=== PATIENT | male | born 1965 | race Caucasian/White ===

== ENCOUNTER 2016-06-11 12:31 | Emergency (ER) | payer OTHER ==
--- NOTE | 2016-06-11 12:50 | ER Document Report ---
ED Medical Screen (RME) - General Chief Complaint: Abdominal Pain Stated Complaint: STOMACH PAIN Time seen by provider: 12:47 Mode of Arrival: Ambulatory Information source: Patient Notes: 51-year-old male presents to ED for abdominal pain since Friday. States when he first came in the pain that was a 4 out of 5, he then went to the bathroom, now his pain is a 1 out of 5. States he took magnesium citrate this morning at 4:30 and that's why he had a bowel movement. States the last time he did magnesium citrate and had a bowel movement was Friday night. Each time he takes a magnesium citrate and he has a bowel movement his pain gets better. I have greeted and performed a rapid initial assessment of this patient. A comprehensive ED assessment and evaluation of the patient, analysis of test results and completion of medical decision making process will be conducted by an additional ED providers. TRAVEL OUTSIDE OF THE [place] IN LAST 30 DAYS: No - Related Data Allergies/Adverse Reactions: No Known Allergies Allergy (Verified 07/26/12 23:16) Past Medical History Pulmonary Medical History: Reports: Hx Pneumonia Denies: Hx Asthma, Hx Bronchitis, Hx COPD Endocrine Medical History: Reports: Hx Diabetes Mellitus Type 2 Past Surgical History: Reports: Hx Appendectomy - Immunizations Immunizations up to date: Yes Hx Diphtheria, Pertussis, Tetanus Vaccination: Yes Physical Exam - Vital signs Vitals: Temp Pulse Resp BP Pulse Ox 97.5 F 101 H 20 168/89 H 90 L 06/11/16 12:40 06/11/16 12:40 06/11/16 12:40 06/11/16 12:40 06/11/16 12:40 Course - Vital Signs Vital signs: Temp Pulse Resp BP Pulse Ox 97.5 F 101 H 20 168/89 H 90 L 06/11/16 12:40 06/11/16 12:40 06/11/16 12:40 06/11/16 12:40 06/11/16 12:40
[2016-06-11 13:26] LABS: ABSOLUTE BASOPHILS # (AUTO) 0.1 10^3/uL (0.0-0.2); ABSOLUTE EOSINOPHILS # (AUTO) 0.1 10^3/uL (0.0-0.6); ABSOLUTE LYMPHOCYTES (AUTO) 2.7 10^3/uL (0.5-4.7); ABSOLUTE MONOCYTES (AUTO) 1.1 10^3/uL (0.1-1.4); ABSOLUTE NEUT (AUTO) 11.7 10^3/uL (1.7-8.2); BASOPHILS % (AUTO) 0.7 % (0-2); EOSINOPHILS % (AUTO) 0.4 % (0-6); HEMATOCRIT 50.7 % (37.9-51.0); HEMOGLOBIN 16.1 g/dL (13.5-17.0); HGB HCT DIFFERENCE -2.4; LYMPHOCYTES % (AUTO) 17.5 % (13-45); MEAN CORPUSCULAR HEMOGLOBIN 27.1 pg (27.0-33.4); MEAN CORPUSCULAR HGB CONC 31.8 g/dL (32.0-36.0); MEAN CORPUSCULAR VOLUME 85 fl (80-97); MONOCYTES % (AUTO) 6.9 % (3-13); RED BLOOD COUNT 5.95 10^6/uL (4.35-5.55); RED CELL DISTRIBUTION WIDTH 15.2 % (11.5-14.0); SEGMENTED NEUTROPHILS % (AUTO) 74.5 % (42-78); WHITE BLOOD COUNT 15.7 10^3/uL (4.0-10.5)
[2016-06-11 13:46] LABS: ALANINE AMINOTRANSFERASE 33 U/L (21-72); ALBUMIN 4.3 g/dL (3.5-5.0); ALKALINE PHOSPHATASE 96 U/L (38-126); ANION GAP 12 (5-19); ASPARTATE AMINO TRANSFERASE 19 U/L (17-59); BILIRUBIN,TOTAL 0.7 mg/dL (0.2-1.3); BLOOD UREA NITROGEN 15 mg/dL (7-20); CALCIUM 9.2 mg/dL (8.4-10.2); CARBON DIOXIDE 28 mmol/L (22-30); CHLORIDE 100 mmol/L (98-107); CREATININE RESULT 0.91 mg/dL (0.52-1.25); GLUCOSE 117 mg/dL (75-110); LIPASE 82.3 U/L (23-300); POTASSIUM 4.5 mmol/L (3.6-5.0); SODIUM 140.1 mmol/L (137-145)
[2016-06-11 14:42] LABS: APPEARANCE,URINE SLIGHTLY-CLOUDY; BILIRUBIN,URINE NEGATIVE (NEGATIVE); GLUCOSE, URINE NEGATIVE (NEGATIVE); KETONES,URINE NEGATIVE (NEGATIVE); LEUKOCYTE ESTERASE,URINE NEGATIVE (NEGATIVE); NITRITE,URINE NEGATIVE (NEGATIVE); PROTEIN,URINE 100 mg/dL (NEGATIVE); URINE SPECIFIC GRAVITY 1.021; UROBILINOGEN,URINE NEGATIVE mg/dL (<2.0)
--- NOTE | 2016-06-11 14:53 | ER Document Report ---
ED GI/ - General Chief Complaint: Abdominal Pain Stated Complaint: STOMACH PAIN Mode of Arrival: Ambulatory Notes: Patient is a 51-year-old male who presents emergency Department complaining of abdominal pain. Patient states that he has had this abdominal pain since Friday. Patient states that his pain is a stabbing pain over his belly button that improves after he has a bowel movement. Patient states that he normally goes daily but has had difficulty over the past 4 days. He taking mag citrate in the morning snorter just admitted a bowel movement. Patient states that his pain resolves with a bowel movement. Patient states that every bowel movement he has had since Friday has been any and is not performed. Otherwise he denies any nausea, vomiting and is been tolerating by mouth. Denies any urinary symptoms or flank. Past medical history significant for hyperlipidemia, insulin-dependent diabetes , hypertension Past surgical history significant for appendectomy when he was 17, tonsils and adenoids, with some teeth extraction Social history significant for [id number]. Otherwise denies any alcohol or drug use Denies any allergies P[facility] is tessy [facility] TRAVEL OUTSIDE OF THE [place] IN LAST 30 DAYS: No - Related Data Allergies/Adverse Reactions: No Known Allergies Allergy (Verified 06/11/16 12:50) Past Medical History - General Information source: Patient - Social History Smoking Status: Current Every Day Smoker Chew tobacco use (# tins/day): No Frequency of alcohol use: None Drug Abuse: None Family History: Reviewed & Not Pertinent Patient has suicidal ideation: No Patient has homicidal ideation: No Pulmonary Medical History: Reports: Hx Pneumonia Denies: Hx Asthma, Hx Bronchitis, Hx COPD Endocrine Medical History: Reports: Hx Diabetes Mellitus Type 2 Renal/ Medical History: Denies: Hx Peritoneal Dialysis Past Surgical History: Reports: Hx Appendectomy - Immunizations Immunizations up to date: Yes Hx Diphtheria, Pertussis, Tetanus Vaccination: Yes Review of Systems - Review of Systems Constitutional: No symptoms reported EENT: No symptoms reported Cardiovascular: No symptoms reported Respiratory: No symptoms reported Gastrointestinal: See HPI Genitourinary: No symptoms reported Male Genitourinary: No symptoms reported Musculoskeletal: No symptoms reported Skin: No symptoms reported Hematologic/Lymphatic: No symptoms reported Neurological/Psychological: No symptoms reported Physical Exam - Vital signs Vitals: Temp Pulse Resp BP Pulse Ox 97.5 F 101 H 20 168/89 H 90 L 06/11/16 12:40 06/11/16 12:40 06/11/16 12:40 06/11/16 12:40 06/11/16 12:40 - Notes Notes: PHYSICAL EXAM GENERAL: Alert, interacts well. HEAD: Normocephalic, atraumatic. EYES: Pupils equal, round, and reactive to light. Extraocular movements intact. ENT: Oral mucosa moist, tongue midline. NECK: Full range of motion. Supple. Trachea midline. LUNGS: Clear to auscultation bilaterally, no wheezes, rales, or rhonchi. No respiratory distress. HEART: Regular rate and rhythm. No murmurs, gallops, or rubs. ABDOMEN: Soft, obese, nondistended, nontender. Not tympanic dull to percussion. Negative Jaime's. No guarding, rebound, or rigidity.. Bowel sounds present in all 4 quadrants. EXTREMITIES: Moves all 4 extremities spontaneously. No edema, radial and dorsalis pedis pulses 2/4 bilaterally. No cyanosis. NEUROLOGICAL: Alert and oriented x3. Normal speech. PSYCH: Normal affect, normal mood. SKIN: Warm, dry, normal turgor. No rashes or lesions noted. Course - Re-evaluation Re-evalutation: 06/11/16 16:04 Patient is a 51-year-old male presents emergency department after referral from the [facility] for acute abdominal pain. Patient states he is sharp stabbing pain over his umbilicus that is relieved with bowel movements. Patient is last bowel movement was this morning and he states that his abdominal pain is much improved. Patient is hemodynamically stable, no acute distress and afebrile. No evidence of tachycardia. Labs do reveal mild leukocytosis at 15 but otherwise no correlating symptoms concerning for infection. Patient does not have any significant GI history such as diverticulosis, Crohn's, ulcerative colitis. He has not had any blood per rectum. Otherwise he is hemodynamically stable. No nausea or vomiting. X-ray does not reveal any free air or fluid levels concerning for obstruction or free air. Patient will be discharged home with constipation management [facility] Per [facility] protocol and guidelines, this case was discussed with supervising physician Dr. Rose Gomez prior to discharge - Vital Signs Vital signs: Temp Pulse Resp BP Pulse Ox 97.5 F 101 H 20 168/89 H 90 L 06/11/16 12:40 06/11/16 12:40 06/11/16 12:40 06/11/16 12:40 06/11/16 12:40 - Laboratory Result Diagrams: 06/11/16 13:05 06/11/16 13:05 Laboratory results interpreted by me: 06/11/16 06/11/16 06/11/16 13:05 13:05 13:05 WBC 15.7 H RBC 5.95 H MCHC 31.8 L RDW 15.2 H Absolute Neutrophils 11.7 H Glucose 117 H Urine Protein 100 H Discharge - Discharge Clinical Impression: Constipation Qualifiers: Constipation type: unspecified constipation type Qualified Code(s): K59.00 - Constipation, unspecified Condition: Good Disposition: HOME, SELF-CARE Additional Instructions: ABDOMINAL PAIN: There are many causes of abdominal pain. Pain can mean a serious problem requiring surgery (such as appendicitis). It can also be an innocent problem that goes away on its own (such as a viral infection). Often, time must pass to determine the cause of pain. The physician does not feel that hospitalization is necessary, at present. Things may change within the next 24 hours. Call the doctor or come back for re- examination if any problems occur, such as: (1) Pain that becomes more severe, steady, or becomes concentrated in one specific area. Also, pain that is more severe with movement or coughing. (2) Vomiting that persists or becomes more frequent. (3) Blood in the vomitus, urine, or bowel movements. Blood in the stool may have a tarry or black appearance. (4) Shaking chills or fever greater than 100 degrees F. (5) The abdomen becomes more distended or swollen. (6) Bowel movements cease. (7) Failure to improve as expected. NORMAL EXAM AND WORKUP: At this time, your examination and workup show no significant abnormality. No significant abnormal physical findings are noted. All laboratory, EKG, and imaging (x-ray, CT scans, ultrasound) studies that were ordered show no significant abnormality. Although your examination and all studies that were ordered showed no significant abnormal finding, there are no examinations and no studies that are 100% accurate. There is always the possibility that some abnormality could exist and not be detected with physical examination or within the limits and capabilities of laboratory and other studies. You should return or follow up as you were instructed on your visit today for further evaluation if your symptoms do not resolve. CONSTIPATION: Constipation is a common problem. It is especially likely as you get older. Constipation is a common cause of abdominal pain, but sometimes causes no symptoms at all. Causes of constipation include certain medications, dehydration, diets, inactivity, and low-fiber intake. Rarely, it can be a symptom of underlying disease. The physician has evaluated you for this. Avoid constipation by eating a diet high in fiber, fruits, and vegetables. Drink plenty of liquids. Get regular exercise. If possible, avoid constipating medicines like narcotic pain medication. Some vitamin tablets can cause constipation. Stool softeners may be needed for difficult cases. An excellent stool softener is Konsyl which is available at [employer], [employer]. Just add a teaspoon to a glass of pineapple or orange juice daily or twice a day if needed. Laxatives are useful for occasional constipation. You should use them only when necessary. Too-frequent use can make your bowels dependent on them. Some over the counter laxatives available without prescription are: Milk of Magnesia, 1-2 tablespoons twice a day Dulcolax, 5 mg pill or 10 mg suppository. Citrate of Magnesia, 4-5 ounces a day for a day or two For acute constipation, Fleet's Enemas and Dulcolax suppositories are helpful. Chronic, oil heaterman use of laxatives or enemas is not a good idea. Your bowel may become dependant on them. You do not need to have a bowel movement every day. Many people do fine with a bowel movement every three or four days. You should call your doctor or return for re-evaluation if you pass blood in the stool, or if you develop fever or increasing abdominal pain. BULK LAXATIVES: Bulk laxatives make the stool softer and bulkier. They're useful for preventing constipation. You can choose between psyllium, methylcellulose, and polycarbophil. They are available without a prescription. Psyllium brand names include Konsyl, Metamucil, Perdiem, Effer-Syllium and Hydrocil. It's available as powder, flavored drink powder, or chewable. The usual dose of psyllium powder is one heaping teaspoon in water each morning, increasing to twice a day if needed. Yelm juice can disguise the slightly grainy texture. Methylcellulose is marketed as Citrucel and other brands. The average dose is two grams in a cup of water one to three times a day. Polycarbophil is marketed as Fiber-Con. Take two tablets with a cup of water one to three times a day. LAXATIVE: A laxative agent has been prescribed for your condition. This should result in passage of stool within 12 hours. Some mild intestinal cramping is common as the hard stool begins to move. You may have loose or runny stools for a short time. Contact your doctor if there is severe cramping, vomiting, or passage of blood. Return for further care if this medicine fails to improve your condition. STOOL SOFTENER: -Available over the counter. Docusate/Colace FOLLOW-UP CARE: If you have been referred to a physician for follow-up care, call the physician s office for an appointment as you were instructed or within the next two days. If you experience worsening or a significant change in your symptoms, notify the physician immediately or return to the Emergency Department at any time for re-evaluation. Forms: Elevated Blood Pressure, Smoking Cessation Education Referrals: PAYAL GEORGE PA [Primary Care Provider] - Follow up in 1 week
[2016-06-11 16:42] VITALS: BP 130/75
== END 2016-06-11 16:40 | disposition home or self-care (01) ==
LOC: ER 12:31
DX: K59.00 Constipation, unspecified (principal); R10.33 Periumbilical pain; D72.829 Elevated white blood cell count, unspecified; I10 Essential (primary) hypertension; E11.9 Type 2 diabetes mellitus without complications; F17.200 Nicotine dependence, unspecified, uncomplicated; Z79.4 Long term (current) use of insulin; Z90.49 Acquired absence of other specified parts of digestive tract
CPT/HCPCS: 36415; 74022; 80053; 81001; 83690; 85025; 99284

== ENCOUNTER 2017-01-10 13:22 | Inpatient (IN) | payer OTHER ==
[2017-01-10] MEDS ORDERED: ALBUTEROL SULFATE 0.083% NEB 2.5 MG/3 ML AMPUL NEB ONE (13:48)
[2017-01-10] MEDS ORDERED: METHYLPREDNISOLONE INJ 125 MG/2 ML SDV IV ONE (13:48)
--- NOTE | 2017-01-10 14:05 | ER Document Report ---
ED Medical Screen (RME) - General TRAVEL OUTSIDE OF THE [place] IN LAST 30 DAYS: No <DAVID MCGEE - Last Filed: 01/10/17 13:59> <CHANELLE VALIENTE - Last Filed: 01/10/17 16:40> - General Chief Complaint: Breathing Difficulty Stated Complaint: DIFFICULTY BREATHING Time Seen by Provider: 01/10/17 13:47 Notes: Patient is a 51 year old male with a history of COPD presenting to the emergency department for difficulty breathing x1 week. Patient has a productive cough with green sputum. Patient states he took DayQuil without relief. Patient saw [facility] on Friday and had a pulse ox of 82%. Patient was given a breathing treatment, a shot, and monitored for a while until he had a pulse ox of 91%. Patient was given a prescription for albuterol, mucinex, robitussin, and steroids which he started on . Patient denies any fevers. (DAVID MCGEE) - Related Data Allergies/Adverse Reactions: No Known Allergies Allergy (Verified 06/11/16 12:50) Past Medical History - Social History Chew tobacco use (# tins/day): No Frequency of alcohol use: None Drug Abuse: None Pulmonary Medical History: Reports: Hx COPD, Hx Pneumonia Denies: Hx Asthma, Hx Bronchitis Endocrine Medical History: Reports: Hx Diabetes Mellitus Type 2 Renal/ Medical History: Denies: Hx Peritoneal Dialysis Past Surgical History: Reports: Hx Appendectomy - Immunizations Immunizations up to date: Yes Hx Diphtheria, Pertussis, Tetanus Vaccination: Yes <DAVID MCGEE - Last Filed: 01/10/17 13:59> Physical Exam <DAVID MCGEE - Last Filed: 01/10/17 13:59> <CHANELLE VALIENTE - Last Filed: 01/10/17 16:40> - Vital signs Vitals: Temp Pulse Resp BP Pulse Ox 98.4 F 98 20 159/91 H 82 L 01/10/17 13:27 01/10/17 13:27 01/10/17 13:27 01/10/17 13:27 01/10/17 13:27 - Notes Notes: GENERAL: Alert, interacts well. Mild distress. LUNGS: Decreased air movement, expiratory wheezes, trace crackles. HEART: Regular rate and rhythm. No murmurs, gallops, or rubs. NEUROLOGICAL: Alert and oriented x3. Normal speech. (DAVID MCGEE) Course - Laboratory Result Diagrams: 01/10/17 14:10 01/10/17 14:10 <CHANELLE VALIENTE - Last Filed: 01/10/17 16:40> - Vital Signs Vital signs: Temp Pulse Resp BP Pulse Ox 98.4 F 98 17 146/90 H 96 01/10/17 13:27 01/10/17 13:27 01/10/17 15:02 01/10/17 15:02 01/10/17 15:02 - Laboratory Laboratory results interpreted by me: 01/10/17 01/10/17 01/10/17 14:10 14:10 14:10 WBC 11.3 H RDW 15.9 H Absolute Neutrophils 8.6 H VBG pCO2 72.7 H* VBG HCO3 35.5 H Chloride 97 L Carbon Dioxide 38 H Glucose 216 H Direct Bilirubin 0.5 H Doctor's Discharge <DAVID MCGEE - Last Filed: 01/10/17 13:59> <CHANELLE VALIENTE - Last Filed: 01/10/17 16:40> - Discharge Clinical Impression: Encounter for smoking cessation counseling, Severe hypoxemia, severe hypercapnea, Respiratory failure, Pneumonia Condition: Fair Disposition: ADMITTED INPATIENT Scribe Documentation - Scribe Written by Scribramirez:: Kimber Juarez 01/10/17 14:04 acting as scribe for :: Ngozi <DAVID MCGEE - Last Filed: 01/10/17 13:59>
[2017-01-10 14:28] LABS: ABSOLUTE BASOPHILS # (AUTO) 0.1 10^3/uL (0.0-0.2); ABSOLUTE LYMPHOCYTES (AUTO) 1.8 10^3/uL (0.5-4.7); ABSOLUTE MONOCYTES (AUTO) 0.8 10^3/uL (0.1-1.4); ABSOLUTE NEUT (AUTO) 8.6 10^3/uL (1.7-8.2); BASOPHILS % (AUTO) 0.9 % (0-2); EOSINOPHILS % (AUTO) 0.3 % (0-6); HEMATOCRIT 46.7 % (37.9-51.0); HEMOGLOBIN 15.2 g/dL (13.5-17.0); HGB HCT DIFFERENCE -1.1; LYMPHOCYTES % (AUTO) 16.2 % (13-45); MEAN CORPUSCULAR HEMOGLOBIN 27.7 pg (27.0-33.4); MEAN CORPUSCULAR HGB CONC 32.5 g/dL (32.0-36.0); MEAN CORPUSCULAR VOLUME 85 fl (80-97); MONOCYTES % (AUTO) 6.8 % (3-13); RED BLOOD COUNT 5.48 10^6/uL (4.35-5.55); RED CELL DISTRIBUTION WIDTH 15.9 % (11.5-14.0); SEGMENTED NEUTROPHILS % (AUTO) 75.8 % (42-78); VENOUS BLOOD BASE EXCESS 6.1 mmol/L; VENOUS BLOOD HCO3 35.5 mmol/L (20-32); VENOUS BLOOD PH 7.31 (7.30-7.42); WHITE BLOOD COUNT 11.3 10^3/uL (4.0-10.5)
[2017-01-10] MEDS ORDERED: IPRATROPIUM/ALBUTEROL 0.5-2.5 MG/3 ML AMPUL NEB ONE ×2 (14:32→14:33)
--- NOTE | 2017-01-10 14:32 | ER Document Report ---
ED General - General Chief Complaint: Breathing Difficulty Stated Complaint: DIFFICULTY BREATHING Time Seen by Provider: 01/10/17 13:47 Mode of Arrival: Ambulatory Information source: Patient, POA - Power of Tenant Selector Notes: 51 yr old male hx of copd presents with complaints of sob productive cough. [facility], sent home with albuterol and antibiotics, he has taken 3 days worth of antibiotics, noted to be very sob. Pt states he was dc [facility] at 92% TRAVEL OUTSIDE OF THE [place] IN LAST 30 DAYS: No - HPI Onset: Last week Onset/Duration: Persistent Quality of pain: No pain Severity: Severe Pain Level: Denies Associated symptoms: Productive cough, Hurts to breath, Shortness of breath Exacerbated by: Walking Relieved by: Denies Similar symptoms previously: Yes Recently seen / treated by doctor: Yes - Related Data Allergies/Adverse Reactions: No Known Allergies Allergy (Verified 06/11/16 12:50) Past Medical History - Social History Smoking Status: Current Every Day Smoker Cigarette use (# per day): Yes Chew tobacco use (# tins/day): No Smoking Education Provided: Yes - Patient counselled regarding cessation for 4 minutes Frequency of alcohol use: None Drug Abuse: None Family History: Reviewed & Not Pertinent Pulmonary Medical History: Reports: Hx COPD, Hx Pneumonia Denies: Hx Asthma, Hx Bronchitis Endocrine Medical History: Reports: Hx Diabetes Mellitus Type 2 Renal/ Medical History: Denies: Hx Peritoneal Dialysis Past Surgical History: Reports: Hx Appendectomy - Immunizations Immunizations up to date: Yes Hx Diphtheria, Pertussis, Tetanus Vaccination: Yes Review of Systems - Review of Systems Notes: REVIEW OF SYSTEMS: CONSTITUTIONAL : Denies fever, chills, or sweats. Denies recent illness. EENT: Denies eye, ear, throat, or mouth pain or symptoms. Denies nasal or sinus congestion or discharge. Denies throat, tongue, or mouth swelling or difficulty swallowing. CARDIOVASCULAR: Denies chest pain. Denies palpitations or racing or irregular heart beat. Denies ankle edema. RESPIRATORY: admits to sob, difficulty breathing GASTROINTESTINAL: Denies abdominal pain or distention. Denies nausea, vomiting , or diarrhea. Denies blood in vomitus, stools, or per rectum. Denies black, tarry stools. Denies constipation. GENITOURINARY: Denies difficulty urinating, painful urination, burning, frequency, blood in urine, or discharge. MUSCULOSKELETAL: Denies back or neck pain or stiffness. Denies joint pain or swelling. SKIN: Denies rash, lesions or sores. HEMATOLOGIC : Denies easy bruising or bleeding. LYMPHATIC: Denies swollen, enlarged glands. NEUROLOGICAL: Denies confusion or altered mental status. Denies passing out or loss of consciousness. Denies dizziness or lightheadedness. Denies headache. Denies weakness or paralysis or loss of use of either side. Denies problems with gait or speech. Denies sensory loss, numbness, or tingling. Denies seizures. PSYCHIATRIC: Denies anxiety or stress. Denies depression, suicidal ideation, or homicidal ideation. ALL OTHER SYSTEMS REVIEWED AND NEGATIVE. Dictation was performed using [employer] voice recognition software PHYSICAL EXAMINATION: GENERAL: morbidly obese , moderate resp distress HEAD: Atraumatic, normocephalic. EYES: Pupils equal round and reactive to light, extraocular movements intact, sclera anicteric, conjunctiva are normal. ENT: Nares patent, oropharynx clear without exudates. Moist mucous membranes. NECK: Normal range of motion, supple without lymphadenopathy LUNGS: coarse wheezing all throuhgout HEART: Regular rate and rhythm without murmurs ABDOMEN: Soft, nontender, nondistended abdomen. No guarding, no rebound. No masses appreciated. Musculoskeletal: Normal range of motion, no pitting or edema. No cyanosis. NEUROLOGICAL: Cranial nerves grossly intact. Normal speech, normal gait. Normal sensory, motor exams PSYCH: Normal mood, normal affect. SKIN: healing lesions on arms Physical Exam - Vital signs Vitals: Temp Pulse Resp BP Pulse Ox 98.4 F 98 20 159/91 H 82 L 01/10/17 13:27 01/10/17 13:27 01/10/17 13:27 01/10/17 13:27 01/10/17 13:27 Course - Re-evaluation Re-evalutation: 01/10/17 14:35 Patient noted to be satting 78% on room air, he was immediately placed on nasal cannula respiratory has been contacted for BiPAP dyspnea workup pending. Patient will be admitted 01/10/17 14:39 Venous blood gas notes elevated CO2, 01/10/17 14:58 X-rays consistent with early pneumonia, patient will be started on Levaquin. Otherwise he is actually quite stable. He will be admitted to the [facility] - Vital Signs Vital signs: Temp Pulse Resp BP Pulse Ox 98.4 F 98 20 159/91 H 82 L 01/10/17 13:27 01/10/17 13:27 01/10/17 13:27 01/10/17 13:27 01/10/17 13:27 - Laboratory Result Diagrams: 01/10/17 14:10 01/10/17 14:10 Laboratory results interpreted by me: 01/10/17 01/10/17 01/10/17 14:10 14:10 14:10 WBC 11.3 H RDW 15.9 H Absolute Neutrophils 8.6 H VBG pCO2 72.7 H* VBG HCO3 35.5 H Chloride 97 L Carbon Dioxide 38 H Glucose 216 H Direct Bilirubin 0.5 H - Diagnostic Test Radiology reviewed: Image reviewed, Reports reviewed - EKG Interpretation by Me EKG shows normal: Sinus rhythm, Mena, Intervals, QRS Complexes Critical Care Note - Critical Care Note Total time excluding time spent on procedures (mins): 34 Comments: 34 minutes of critical care time spent in direct contact evaluating and reevaluating the patient, treating symptoms, reviewing labs and studies and speaking with family and consultants excluding any procedures Discharge - Discharge Clinical Impression: Encounter for smoking cessation counseling, Severe hypoxemia, severe hypercapnea Respiratory failure Qualifiers: Chronicity: acute Respiratory failure complication: hypoxia and hypercapnia Qualified Code(s): J96.01 - Acute respiratory failure with hypoxia; J96.02 - Acute respiratory failure with hypercapnia Pneumonia Qualifiers: Pneumonia type: due to unspecified organism Laterality: right Lung location: lower lobe of lung Qualified Code(s): J18.1 - Lobar pneumonia, unspecified organism Condition: Fair Disposition: ADMITTED INPATIENT Admitting Provider: Hospitalist Unit Admitted: [facility]
[2017-01-10 14:34] LABS: VENOUS BLOOD PCO2 72.7 mmHg (35-63)
[2017-01-10 14:45] LABS: ALANINE AMINOTRANSFERASE 43 U/L (21-72); ALBUMIN 3.8 g/dL (3.5-5.0); ALKALINE PHOSPHATASE 89 U/L (38-126); ANION GAP 7 (5-19); ASPARTATE AMINO TRANSFERASE 26 U/L (17-59); BILIRUBIN,DIRECT 0.5 mg/dL (0.0-0.4); BILIRUBIN,TOTAL 0.5 mg/dL (0.2-1.3); BLOOD UREA NITROGEN 19 mg/dL (7-20); CALCIUM 8.9 mg/dL (8.4-10.2); CARBON DIOXIDE 38 mmol/L (22-30); CHLORIDE 97 mmol/L (98-107); CREATINE KINASE 126 U/L (55-170); CREATININE RESULT 0.91 mg/dL (0.52-1.25); GLUCOSE 216 mg/dL (75-110); POTASSIUM 4.3 mmol/L (3.6-5.0); TOTAL PROTEIN 6.7 g/dL (6.3-8.2)
--- NOTE | 2017-01-10 14:48 | RADIOLOGY REPORT (SQ) ---
EXAM DESCRIPTION: CHEST PA/LAT COMPLETED DATE/TIME: 01/10/2017 2:34 pm REASON FOR STUDY: SOB, cough COMPARISON: 07/27/2012 EXAM PARAMETERS: NUMBER OF VIEWS: two views TECHNIQUE: Digital Frontal and Lateral radiographic views of the chest acquired. RADIATION DOSE: NA LIMITATIONS: Overlying breast tissue. FINDINGS: LUNGS AND PLEURA: Subsegmental airspace disease right lower lobe. MEDIASTINUM AND HILAR STRUCTURES: No masses or contour abnormalities. HEART AND VASCULAR STRUCTURES: Stable cardiomegaly. BONES: No acute findings. HARDWARE: None in the chest. OTHER: No other significant finding. IMPRESSION: Atelectasis or early pneumonia right lower lobe. TECHNICAL DOCUMENTATION: JOB ID: [id number] [employer]- All Rights Reserved
[2017-01-10] MEDS ORDERED: LEVOFLOXACIN 750 MG/D5W RTU 750 MG/150 ML RTUPB IV ONE (14:51)
[2017-01-10 14:56] LABS: CREATINE KINASE MB 1.64 ng/mL (<4.55)
[2017-01-10 14:59] LABS: TROPONIN I < 0.012 ng/mL
[2017-01-10] MEDS ORDERED: ACETAMINOPHEN 325 MG TABLET PO PRN (15:10)
[2017-01-10] MEDS ORDERED: NORMAL SALINE 1000 ML 1,000 ML IV PRN (15:10)
[2017-01-10] MEDS ORDERED: ENOXAPARIN SODIUM INJ 40 MG/0.4 ML DISP.SYRIN SUBCUT ONE ×2 (17:00→18:30)
[2017-01-10] MEDS ORDERED: DEXTROSE 50%-WATER SYRINGE 25 GM/50 ML DOSE IV PRN (17:58)
[2017-01-10] MEDS ORDERED: DEXTROSE 50%-WATER SYRINGE 12.5 GM/25 ML DOSE IV PRN (17:58)
[2017-01-10] MEDS ORDERED: DEXTROSE 40% GEL 15 GM TUBE PO PRN (17:58)
[2017-01-10] MEDS ORDERED: GLUCAGON,HUMAN RECOMB 1 MG INJ IM PRN (17:58)
[2017-01-10] MEDS ORDERED: DEXTROSE 40% GEL 15 GM TUBE X 2 PO PRN (17:58)
[2017-01-10] MEDS: INSULIN LISPRO 100 UNIT/ML 3 ML VIAL SUBCUT PRN (19:06)
[2017-01-10] MEDS: BUDESONIDE NEB 0.25 MG/2 ML AMPUL NEB SCH (20:51)
[2017-01-10] MEDS: GUAIFENESIN 600 MG TABLET.SA PO SCH (22:03)
[2017-01-10] MEDS: FAMOTIDINE 20 MG TABLET PO SCH (22:03)
--- NOTE | 2017-01-10 23:56 | EKG REPORT ---
SEVERITY:- BORDERLINE ECG - SINUS RHYTHM : Confirmed by: Robert Brink 10-Jan-2017 23:55:20
[2017-01-11] MEDS: INSULIN GLARGINE,HUM.REC.ANLOG 1,000 UNIT/10 ML UNIT SUBCUT SCH ×2 (00:47→21:39)
[2017-01-11] MEDS: INSULIN LISPRO 100 UNIT/ML 3 ML VIAL SUBCUT PRN ×3 (00:47→16:48)
[2017-01-11 05:53] LABS: ABSOLUTE LYMPHOCYTES (AUTO) 1.2 10^3/uL (0.5-4.7); ABSOLUTE MONOCYTES (AUTO) 0.6 10^3/uL (0.1-1.4); ABSOLUTE NEUT (AUTO) 7.5 10^3/uL (1.7-8.2); BASOPHILS % (AUTO) 0.5 % (0-2); HEMATOCRIT 44.2 % (37.9-51.0); HEMOGLOBIN 14.3 g/dL (13.5-17.0); HGB HCT DIFFERENCE -1.3; LYMPHOCYTES % (AUTO) 13.3 % (13-45); MEAN CORPUSCULAR HEMOGLOBIN 28.1 pg (27.0-33.4); MEAN CORPUSCULAR HGB CONC 32.4 g/dL (32.0-36.0); MEAN CORPUSCULAR VOLUME 87 fl (80-97); MONOCYTES % (AUTO) 6.2 % (3-13); RED CELL DISTRIBUTION WIDTH 15.6 % (11.5-14.0); WHITE BLOOD COUNT 9.3 10^3/uL (4.0-10.5)
[2017-01-11 06:07] LABS: ANION GAP 8 (5-19); BLOOD UREA NITROGEN 18 mg/dL (7-20); CALCIUM 9.1 mg/dL (8.4-10.2); CARBON DIOXIDE 36 mmol/L (22-30); CHLORIDE 98 mmol/L (98-107); CREATININE RESULT 0.98 mg/dL (0.52-1.25); GLUCOSE 255 mg/dL (75-110); POTASSIUM 4.9 mmol/L (3.6-5.0); SODIUM 142.4 mmol/L (137-145)
[2017-01-11 06:19] LABS: ARTERIAL BLOOD BASE EXCESS 3.8 mmol/L; ARTERIAL BLOOD O2 SATURATION 92.3 % (94-98)
--- NOTE | 2017-01-11 07:56 | PDOC H&P ---
History of Present Illness Admission Date/PCP: 01/10/17 15:11 Patient complains of: Difficulty breathing History of Present Illness: CRYSTAL BRADLEY is a 51 year old male with a history of morbid obesity type 2 diabetes pretension COPD tobacco abuse presents to the ED with complaint of congestion and shortness of breath. Patient states that he was seen at [facility] about 5 days ago for congestion and cough. Patient was given breathing treatments and Levaquin. Patient states they did not seem to get him better even 2 days after taking the medications. Today patient states it was really bad and had to come to the hospital for further evaluation. Patient denies any fevers chills he does have productive cough and shortness of breath. Patient does not use oxygen at home nor does he uses CPAP. Patient states that he smokes 2 packs of cigarettes a day but has not had any breathing problems. Patient states about 2 years ago he came to [facility] for evaluation and was found to have a pneumonia. In the ED patient was found to be hypoxic and hypercapnic with CO2 in the 70s patient was satting 82% on room air. Patient was placed on BiPAP. Patient chest x-ray was consistent with early pneumonia hospitalist was called to admit patient for further evaluation and treatment. Past Medical History Pulmonary Medical History: Reports: Chronic Obstructive Pulmonary Disease (COPD) , Pneumonia Denies: Asthma, Bronchitis Endocrine Medical History: Reports: Diabetes Mellitus Type 2 Psychiatric Medical History: Reports: Tobacco Dependency Past Surgical History Past Surgical History: Reports: Appendectomy Social History Smoking Status: Current Every Day Smoker Cigarettes Packs Per Day: 2 Number of Years Smokin Last Time Smoked: 01/10/17 Frequency of Alcohol Use: None Hx Recreational Drug Use: No Drugs: None Hx Prescription Drug Abuse: No Family History Family History: None, Reviewed & Not Pertinent Parental Family History Reviewed: Yes Children Family History Reviewed: Yes Sibling(s) Family History Reviewed.: Yes Medication/Allergy Home Medications: Levofloxacin [Levaquin 750 mg Tablet] 750 mg PO DAILY #7 tablet 07/27/12 Aspirin [Aspirin 81 mg Chewable Tablet] 81 mg PO DAILY #1 pkg 01/10/17 Hydrochlorothiazide 1 tab PO DAILY 01/10/17 Insulin Glargine,Hum.rec.anlog [Lantus] 80 units SUBCUT DAILY 01/10/17 Furosemide 20 mg PO DAILY 01/11/17 Lisinopril 20 mg PO DAILY 01/11/17 Metformin HCl 500 mg PO DAILY 01/11/17 Venlafaxine HCl 37.5 mg PO DAILY 01/11/17 Allergies/Adverse Reactions: No Known Allergies Allergy (Verified 06/11/16 12:50) Review of Systems Respiratory: PRESENT: cough, dyspnea, sputum Physical Exam Vital Signs: Temp Pulse Resp BP Pulse Ox 97.6 F 80 20 150/83 H 93 01/10/17 20:00 01/10/17 20:51 01/10/17 20:51 01/10/17 20:00 01/10/17 20:51 Intake & Output 01/09/17 01/10/17 01/11/17 06:59 06:59 06:59 Intake Total 350 Balance 350 General appearance: PRESENT: no acute distress, morbidly obese Head exam: PRESENT: atraumatic, normocephalic Respiratory exam: PRESENT: decreased breath sounds, other - BiPAP mask in place GI/Abdominal exam: PRESENT: distended, firm, normal bowel sounds Rectal exam: PRESENT: deferred Musculoskeletal exam: PRESENT: full ROM Neurological exam: PRESENT: alert, awake, oriented to person, oriented to place , oriented to time Psychiatric exam: PRESENT: normal mood Skin exam: PRESENT: other - Lesions on his skin Results Impressions: Chest X-Ray 01/10/17 13:48 IMPRESSION: Atelectasis or early pneumonia right lower lobe. Assessment & Plan - Diagnosis (1) Respiratory failure Qualifiers: Chronicity: acute Respiratory failure complication: hypoxia and hypercapnia Qualified Code(s): J96.01 - Acute respiratory failure with hypoxia ; J96.02 - Acute respiratory failure with hypercapnia Plan: Patient presents with combined hypoxic hypercapnic respiratory failure. This may be a chronic issue related to patient body habitus patient may have underlying obesity hypoventilation syndrome and obstructive sleep apnea. Patient has never been evaluated for this in the past however patient should follow-up with her acid washer operator and have a formal sleep study once his pneumonia is completely treated. Will continue with BiPAP at this time in the hospital and follow-up ABGs. (2) Pneumonia Qualifiers: Pneumonia type: due to unspecified organism Laterality: right Lung location: lower lobe of lung Qualified Code(s): J18.1 - Lobar pneumonia, unspecified organism Plan: Patient was started on Levaquin as an outpatient will resume Levaquin as inpatient and monitor for improvement. (3) COPD exacerbation Is this a current diagnosis for this admission?: Yes Plan: Patient has underlying COPD. Patient continues to smoke despite having this diagnosis. Patient is currently on Pulmicort and DuoNeb scheduled will hold off will use and systemic steroids as assessed exacerbations most likely due to his underlying pneumonia which is being treated with Levaquin. (4) Encounter for smoking cessation counseling Is this a current diagnosis for this admission?: Yes Plan: She smokes 2 packs of cigarettes a day. Patient does have a history of COPD and was advised that he should refrain from smoking as this will only make his symptoms worse. (5) Morbid obesity due to excess calories Is this a current diagnosis for this admission?: Yes Plan: Patient will be counseled on this. Patient will benefit from weight loss as this may be contributing to his respiratory status. He has a BMI of 50.2 (6) Type 2 diabetes mellitus Qualifiers: Diabetes mellitus complication status: without complication Diabetes mellitus shelter insulin use: with shelter use Qualified Code(s): E11.9 - Type 2 diabetes mellitus without complications; Z79.4 - care home (current) use of insulin Is this a current diagnosis for this admission?: Yes Plan: We will continue patient home dose of basal insulin and add sliding scale coverage patient will also be on a carb consistent diet. (7) Hypertension Qualifiers: Hypertension type: essential hypertension Qualified Code(s): I10 - Essential (primary) hypertension Is this a current diagnosis for this admission?: Yes Plan: Resume patient home medications once he has the correct list which his is bringing from home. - Time Time Spent: 30 to 50 Minutes Smoking Cessation Education: 3 to 10 minutes Medications reviewed and adjusted accordingly: No - He is not sure of the dosage of his medications. Waiting list from . Anticipated discharge: Home Within: within 72 hours - Patient is on DVT prophylaxis with Lovenox. - Inpatient Certification Medical Necessity: Need Close Monitoring Due to Risk of Patient Decompensation, Need for Nebulizer Therapy and Monitoring of Response
[2017-01-11] MEDS: IPRATROPIUM/ALBUTEROL 0.5-2.5 MG/3 ML AMPUL NEB PRN ×2 (08:12→20:32)
[2017-01-11] MEDS: BUDESONIDE NEB 0.25 MG/2 ML AMPUL NEB SCH ×2 (08:23→20:32)
[2017-01-11] MEDS: ENOXAPARIN SODIUM INJ 40 MG/0.4 ML DISP.SYRIN SUBCUT SCH (08:31)
[2017-01-11] MEDS: FUROSEMIDE 20 MG TABLET PO SCH (09:03)
[2017-01-11] MEDS: GUAIFENESIN 600 MG TABLET.SA PO SCH ×2 (09:03→21:37)
[2017-01-11] MEDS: FAMOTIDINE 20 MG TABLET PO SCH ×2 (09:03→21:38)
[2017-01-11] MEDS: ASPIRIN 81 MG TABLET, ENT COATED PO SCH (09:03)
[2017-01-11] MEDS: LISINOPRIL 10 MG TABLET PO SCH (09:03)
[2017-01-11] MEDS: LEVOFLOXACIN 750 MG/D5W RTU 750 MG/150 ML RTUPB IV SCH (09:04)
[2017-01-11] MEDS ORDERED: LISINOPRIL 10 MG TABLET PO SCH (10:00)
[2017-01-11] MEDS ORDERED: (PENDING PHARMACY ID) (Lisinopril [Lisinopril] 20 MG) PO SCH (10:00)
[2017-01-11] MEDS ORDERED: (PENDING PHARMACY ID) (Venlafaxine Hcl [Venlafaxine Hcl] 37.5 MG) PO SCH (10:00)
[2017-01-11] MEDS ORDERED: VENLAFAXINE HCL 37.5 MG CAP.SR.24H PO SCH (10:00)
[2017-01-11] MEDS ORDERED: ENOXAPARIN SODIUM INJ 40 MG/0.4 ML DISP.SYRIN SUBCUT SCH (10:00)
[2017-01-11] MEDS: VENLAFAXINE HCL 75 MG TABLET PO SCH (10:07)
[2017-01-11] MEDS ORDERED: INSULIN ASPART SUBCUT SCH (12:00)
[2017-01-11 13:13] LABS: ARTERIAL BLOOD BASE EXCESS 7.6 mmol/L; ARTERIAL BLOOD O2 SATURATION 57.3 % (94-98)
--- NOTE | 2017-01-11 15:19 | PDOC PROGRESS REPORT ---
Subjective Progress Note for:: 01/11/17 Subjective:: Patient sitting up in chair having lunch. Patient states that he is noticing that he is more short of breath especially with walking. Patient still has productive cough. Patient reminded me that he smokes 2 packs of cigarettes a day and that he needs something to prevent him from wanting to smoke. Physical Exam Vital Signs: Temp Pulse Resp BP Pulse Ox 97.7 F 81 23 H 135/82 H 93 01/11/17 12:00 01/11/17 12:00 01/11/17 12:50 01/11/17 12:00 01/11/17 12:50 Intake & Output 01/10/17 01/11/17 01/12/17 06:59 06:59 06:59 Intake Total 550 Balance 550 General appearance: PRESENT: obese Eye exam: PRESENT: EOMI Respiratory exam: PRESENT: decreased breath sounds - Signs of distress Cardiovascular exam: PRESENT: RRR GI/Abdominal exam: PRESENT: normal bowel sounds, other - Protuberant Rectal exam: PRESENT: deferred Extremities exam: PRESENT: pedal edema Psychiatric exam: PRESENT: normal mood Skin exam: PRESENT: other - Lesions on the skin Results Laboratory Results: 01/11/17 05:35 01/11/17 05:35 01/11/17 01/11/17 01/11/17 05:35 05:35 05:46 WBC 9.3 RBC 5.10 Hgb 14.3 Hct 44.2 MCV 87 MCH 28.1 MCHC 32.4 RDW 15.6 H Plt Count 240 Seg Neutrophils % 80.0 H Lymphocytes % 13.3 Monocytes % 6.2 Eosinophils % 0.0 Basophils % 0.5 Absolute Neutrophils 7.5 Absolute Lymphocytes 1.2 Absolute Monocytes 0.6 Absolute Eosinophils 0.0 Absolute Basophils 0.0 Carbonic Acid 2.55 H HCO3/H2CO3 Ratio 13:1 ABG pH 7.23 L ABG pCO2 84.7 H* ABG pO2 77.3 L ABG HCO3 34.7 H ABG O2 Saturation 92.3 L ABG Base Excess 3.8 FiO2 50% Sodium 142.4 Potassium 4.9 Chloride 98 Carbon Dioxide 36 H Anion Gap 8 BUN 18 Creatinine 0.98 Est GFR ( Amer) > 60 Est GFR (Non-Af Amer) > 60 Glucose 255 H Calcium 9.1 01/11/17 12:55 WBC RBC Hgb Hct MCV MCH MCHC RDW Plt Count Seg Neutrophils % Lymphocytes % Monocytes % Eosinophils % Basophils % Absolute Neutrophils Absolute Lymphocytes Absolute Monocytes Absolute Eosinophils Absolute Basophils Carbonic Acid 2.66 H HCO3/H2CO3 Ratio 14:1 ABG pH 7.26 L ABG pCO2 88.4 H* ABG pO2 35.9 L* ABG HCO3 38.8 H ABG O2 Saturation 57.3 L ABG Base Excess 7.6 FiO2 45% Sodium Potassium Chloride Carbon Dioxide Anion Gap BUN Creatinine Est GFR ( Amer) Est GFR (Non-Af Amer) Glucose Calcium Impressions: Chest X-Ray 01/10/17 13:48 IMPRESSION: Atelectasis or early pneumonia right lower lobe. Assessment & Plan - Diagnosis (1) Respiratory failure Qualifiers: Chronicity: acute Respiratory failure complication: hypoxia and hypercapnia Qualified Code(s): J96.01 - Acute respiratory failure with hypoxia ; J96.02 - Acute respiratory failure with hypercapnia Plan: Combined hypoxic hypercapnic respiratory failure. This may be a chronic issue related to patient body habitus patient may have underlying obesity hypoventilation syndrome and obstructive sleep apnea. Patient has never been evaluated for this in the past however patient should follow-up with her wood engraver and have a formal sleep study once his pneumonia is completely treated. Despite CO2 retention, patient appears to be doing well. Will resume bipap during the day and repeat ABG in the am. (2) Pneumonia Qualifiers: Pneumonia type: due to unspecified organism Laterality: right Lung location: lower lobe of lung Qualified Code(s): J18.1 - Lobar pneumonia, unspecified organism Plan: RLL pneumonia. Will continue levaquin. (3) COPD exacerbation Is this a current diagnosis for this admission?: Yes Plan: Patient has underlying COPD. Patient continues to smoke despite having this diagnosis. Patient is currently on Pulmicort and DuoNeb scheduled. Patient is also on levaquin. At this time will start oral steroid as patient is having dyspnea on exertion. Will also check echo to rule out any other causes (CHF, pulmonary hypertension) for the cause of SOB. (4) Encounter for smoking cessation counseling Is this a current diagnosis for this admission?: Yes Plan: She smokes 2 packs of cigarettes a day. Patient does have a history of COPD and was advised that he should refrain from smoking as this will only make his symptoms worse. Patient requesting nicotine patch. (5) Morbid obesity due to excess calories Is this a current diagnosis for this admission?: Yes Plan: Patient counseled. Patient will benefit from weight loss as this may be contributing to his respiratory status. 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 Will continue the sliding scale insulin. (7) Hypertension Qualifiers: Hypertension type: essential hypertension Qualified Code(s): I10 - Essential (primary) hypertension Is this a current diagnosis for this admission?: Yes Plan: Will continue lisinopril and lasix. - Time Time Spent with patient: 15-24 minutes Smoking Cessation Education: 3 to 10 minutes Medications reviewed and adjusted accordingly: Yes Anticipated discharge: Home
[2017-01-11] MEDS ORDERED: NICOTINE 21 MG/24 HR PATCH.TD24 TD ONE (16:30)
[2017-01-11] MEDS ORDERED: INSULIN ASPART 36 UNIT SUBCUT SCH (18:00)
[2017-01-11] MEDS ORDERED: INSULIN LISPRO 100 UNIT/ML 3 ML VIAL SUBCUT SCH (18:00)
[2017-01-11] MEDS: ATORVASTATIN CALCIUM 10 MG TABLET PO SCH (21:37)
[2017-01-12 06:41] LABS: ARTERIAL BLOOD O2 SATURATION 88.6 % (94-98)
[2017-01-12] MEDS: IPRATROPIUM/ALBUTEROL 0.5-2.5 MG/3 ML AMPUL NEB PRN (08:34)
[2017-01-12] MEDS: BUDESONIDE NEB 0.25 MG/2 ML AMPUL NEB SCH (08:35)
[2017-01-12] MEDS: ENOXAPARIN SODIUM INJ 40 MG/0.4 ML DISP.SYRIN SUBCUT SCH (09:35)
[2017-01-12] MEDS: FAMOTIDINE 20 MG TABLET PO SCH ×2 (09:36→22:27)
[2017-01-12] MEDS: VENLAFAXINE HCL 75 MG TABLET PO SCH (09:36)
[2017-01-12] MEDS: GUAIFENESIN 600 MG TABLET.SA PO SCH ×2 (09:36→22:27)
[2017-01-12] MEDS: LISINOPRIL 10 MG TABLET PO SCH (09:36)
[2017-01-12] MEDS: LEVOFLOXACIN 750 MG/D5W RTU 750 MG/150 ML RTUPB IV SCH (09:37)
[2017-01-12] MEDS: CYANOCOBALAMIN (VITAMIN B-12) 1,000 MCG TABLET PO SCH (09:37)
[2017-01-12] MEDS: FUROSEMIDE 20 MG TABLET PO SCH (09:37)
[2017-01-12] MEDS: ASPIRIN 81 MG TABLET, ENT COATED PO SCH (09:37)
[2017-01-12] MEDS: NICOTINE 21 MG/24 HR PATCH.TD24 TD SCH (09:37)
[2017-01-12] MEDS ORDERED: (PENDING PHARMACY ID) (Pravastatin Sodium [Pravachol] 40 MG) PO SCH (10:00)
[2017-01-12] MEDS ORDERED: PREDNISONE 20 MG TABLET PO SCH (10:00)
[2017-01-12] MEDS ORDERED: FUROSEMIDE INJ/PF 40 MG/4 ML SDV IV ONE (10:15)
--- NOTE | 2017-01-12 11:07 | RADIOLOGY REPORT (SQ) ---
EXAM DESCRIPTION: CHEST SINGLE VIEW COMPLETED DATE/TIME: 01/12/2017 10:54 am REASON FOR STUDY: Shortness of breath COMPARISON: 01/10/2017 NUMBER OF VIEWS: One view. TECHNIQUE: Single frontal radiographic view of the chest acquired. LIMITATIONS: None. FINDINGS: LUNGS AND PLEURA: Bibasilar opacities without improvement. MEDIASTINUM AND HILAR STRUCTURES: No masses or contour abnormality. HEART AND VASCULATURE: Cardiac enlargement. Vascular congestion. BONES: No acute findings. HARDWARE: None in the chest. OTHER: No other significant finding. IMPRESSION: CARDIAC ENLARGEMENT. VASCULAR CONGESTION. Bilateral basilar opacities without improvement. TECHNICAL DOCUMENTATION: JOB ID: [id number] [employer]- All Rights Reserved
[2017-01-12] MEDS ORDERED: INSULIN LISPRO 100 UNIT/ML 3 ML VIAL SUBCUT SCH (12:00)
--- NOTE | 2017-01-12 12:20 | PDOC PROGRESS REPORT ---
Subjective Progress Note for:: 01/12/17 Subjective:: Since sitting up in chair. Patient states that he is having difficulty breathing without the mask. Patient BiPAP settings have been increased to 24/ 10. Patient states that he has been having leg swelling over the last 2 weeks and is supposed [facility] Unfortunately patient keeps having his friends bring him Yungs and valentina. Physical Exam Vital Signs: Temp Pulse Resp BP Pulse Ox 97.7 F 80 21 H 147/94 H 100 01/12/17 08:00 01/12/17 08:00 01/12/17 08:00 01/12/17 08:00 01/12/17 08:00 Intake & Output 01/11/17 01/12/17 01/13/17 06:59 06:59 06:59 Intake Total 550 3479 Output Total 2275 Balance 550 1204 Weight 180.8 kg General appearance: PRESENT: morbidly obese Neck exam: PRESENT: other - Thick neck Respiratory exam: PRESENT: decreased breath sounds, rhonchi Cardiovascular exam: PRESENT: RRR GI/Abdominal exam: PRESENT: normal bowel sounds, other - Protuberant Rectal exam: PRESENT: deferred Extremities exam: PRESENT: +2 edema Musculoskeletal exam: PRESENT: full ROM Neurological exam: PRESENT: CN II-XII grossly intact Skin exam: PRESENT: dry Results Laboratory Results: 01/11/17 05:35 01/11/17 05:35 01/11/17 01/12/17 12:55 06:25 Carbonic Acid 2.66 H 2.64 H HCO3/H2CO3 Ratio 14:1 14:1 ABG pH 7.26 L 7.27 L ABG pCO2 88.4 H* 87.6 H* ABG pO2 35.9 L* 65.3 L ABG HCO3 38.8 H 38.9 H ABG O2 Saturation 57.3 L 88.6 L ABG Base Excess 7.6 8.0 FiO2 45% 40% 01/10/17 17:25 Sputum Gram Stain - Final 01/10/17 17:25 Sputum Sputum Culture - Final NORMAL DESTIN Impressions: Chest X-Ray 01/10/17 13:48 IMPRESSION: Atelectasis or early pneumonia right lower lobe. Assessment & Plan - Diagnosis (1) Respiratory failure Qualifiers: Chronicity: acute Respiratory failure complication: hypoxia and hypercapnia Qualified Code(s): J96.01 - Acute respiratory failure with hypoxia ; J96.02 - Acute respiratory failure with hypercapnia Plan: Combined hypoxic hypercapnic respiratory failure. This may be a chronic issue related to patient body habitus patient may have underlying obesity hypoventilation syndrome and obstructive sleep apnea. Patient has never been evaluated for this in the past however patient should follow-up with her wire winder and have a formal sleep study once his pneumonia is completely treated. Despite CO2 retention, patient appears to be doing well. BiPAP settings had been adjusted to 24/10 with FiO2 of 45. Repeat chest x-ray shows vascular congestion on opacities. Cardiac echo has been ordered. (2) Pneumonia Qualifiers: Pneumonia type: due to unspecified organism Laterality: right Lung location: lower lobe of lung Qualified Code(s): J18.1 - Lobar pneumonia, unspecified organism Plan: RLL pneumonia. Continue Levaquin. (3) COPD exacerbation Is this a current diagnosis for this admission?: Yes Plan: Patient has underlying COPD. Patient continues to smoke despite having this diagnosis. Patient is currently on Pulmicort and DuoNeb scheduled. Patient is also on levaquin. Patient steroid increased to 60 mg 3 times daily. (4) Encounter for smoking cessation counseling Is this a current diagnosis for this admission?: Yes Plan: She smokes 2 packs of cigarettes a day. Patient does have a history of COPD and was advised that he should refrain from smoking as this will only make his symptoms worse. Patient requesting nicotine patch. (5) Morbid obesity due to excess calories Is this a current diagnosis for this admission?: Yes Plan: Patient counseled. Patient will benefit from weight loss as this may be contributing to his respiratory status. He has a BMI of 50.2 Patient told about having friends bring in fast food to him into the hospital. 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 Patient blood glucoses have been fairly stable however with increasing steroids there is concerned that patient may need more insulin. Would monitor patient blood glucoses and adjust insulin accordingly. (7) Hypertension Qualifiers: Hypertension type: essential hypertension Qualified Code(s): I10 - Essential (primary) hypertension Is this a current diagnosis for this admission?: Yes Plan: Will continue lisinopril and lasix. (8) Pedal edema Plan: Will order venous Doppler bilaterally to rule out any DVT. Will increase patient dose of Lasix. Also will check cardiac echo to make sure patient does not have any systolic or diastolic heart failure. - Time Time Spent with patient: 15-24 minutes Anticipated discharge: Home
[2017-01-12] MEDS: METHYLPREDNISOLONE INJ 40 MG/1 ML SDV IV SCH ×2 (13:38→22:26)
[2017-01-12] MEDS: IPRATROPIUM/ALBUTEROL 0.5-2.5 MG/3 ML AMPUL NEB SCH ×2 (14:26→20:34)
[2017-01-12] MEDS: INSULIN LISPRO 100 UNIT/ML 3 ML VIAL SUBCUT PRN ×2 (17:23→22:26)
[2017-01-12] MEDS: BUDESONIDE NEB 0.5 MG/2 ML AMPUL NEB SCH (20:35)
[2017-01-12] MEDS: CARVEDILOL 3.125 MG TABLET PO SCH (22:26)
[2017-01-12] MEDS: INSULIN GLARGINE,HUM.REC.ANLOG 1,000 UNIT/10 ML UNIT SUBCUT SCH (22:26)
[2017-01-12] MEDS: ATORVASTATIN CALCIUM 10 MG TABLET PO SCH (22:27)
[2017-01-13] MEDS: IPRATROPIUM/ALBUTEROL 0.5-2.5 MG/3 ML AMPUL NEB SCH ×4 (01:45→20:09)
[2017-01-13] MEDS: METHYLPREDNISOLONE INJ 40 MG/1 ML SDV IV SCH ×3 (05:18→21:45)
[2017-01-13] MEDS: BUDESONIDE NEB 0.5 MG/2 ML AMPUL NEB SCH ×2 (07:50→20:09)
[2017-01-13] MEDS: INSULIN LISPRO 100 UNIT/ML 3 ML VIAL SUBCUT PRN ×4 (08:14→21:43)
[2017-01-13] MEDS: ENOXAPARIN SODIUM INJ 40 MG/0.4 ML DISP.SYRIN SUBCUT SCH (08:14)
[2017-01-13] MEDS: ASPIRIN 81 MG TABLET, ENT COATED PO SCH (11:27)
[2017-01-13] MEDS: CARVEDILOL 3.125 MG TABLET PO SCH ×2 (11:28→21:46)
[2017-01-13] MEDS: CYANOCOBALAMIN (VITAMIN B-12) 1,000 MCG TABLET PO SCH (11:30)
[2017-01-13] MEDS: FAMOTIDINE 20 MG TABLET PO SCH ×2 (11:30→21:46)
[2017-01-13] MEDS: GUAIFENESIN 600 MG TABLET.SA PO SCH ×2 (11:31→21:46)
[2017-01-13] MEDS: FUROSEMIDE INJ/PF 40 MG/4 ML SDV IV SCH ×2 (11:31→21:45)
[2017-01-13] MEDS: LISINOPRIL 10 MG TABLET PO SCH (11:32)
[2017-01-13] MEDS: NICOTINE 21 MG/24 HR PATCH.TD24 TD SCH (11:32)
[2017-01-13] MEDS: VENLAFAXINE HCL 75 MG TABLET PO SCH (11:36)
--- NOTE | 2017-01-13 11:50 | XCELERA REPORT ---
[address] [address] Lower Extremity Venous Evaluation Name: CRYSTAL BRADLEY Age: 51 yrs Gender: Male : 1965 Patient Status: Inpatient Patient Location: [address] [place], [place] [id number] Study Date: 01/13/2017 10:38 AM Procedure: Color flow and duplex imaging bilaterally of the veins of the lower extremities as well as the Common Femoral veins. Reason For Study: edema Ordering Physician: GEORGINA PINO Performed By: All Yoder Right Sided Venous Evaluation Subcutaneous leg edema noted. Normal vessel filling wall to wall, compression and augmentation as well as Colour flow down to the infrageniculate veins. Left Sided Venous Evaluation Subcutaneous leg edema noted. Normal vessel filling wall to wall, compression and augmentation as well as Colour flow down to the infrageniculate veins. Interpretation Summary No duplex evidence of DVT or obstruction in the bilateral lower extremities. : GEORGINA PINO > Ayad Franks
[2017-01-13] MEDS ORDERED: LEVOFLOXACIN 750 MG TABLET PO ONE (12:00)
--- NOTE | 2017-01-13 17:40 | PDOC PROGRESS REPORT ---
Subjective Progress Note for:: 01/13/17 Subjective:: Patient sitting up in chair on nasal cannula. Patient still states that he becomes very short of breath with activity. Physical Exam Vital Signs: Temp Pulse Resp BP Pulse Ox 98.3 F 91 14 141/77 H 93 01/13/17 11:54 01/13/17 13:39 01/13/17 13:39 01/13/17 11:54 01/13/17 13:39 Intake & Output 01/12/17 01/13/17 01/14/17 06:59 06:59 06:59 Intake Total 8624 1566 480 Output Total 4012 7841 Balance 4627 -4512 762 Weight 180.8 kg 177.4 kg General appearance: PRESENT: morbidly obese Eye exam: PRESENT: EOMI Respiratory exam: PRESENT: decreased breath sounds. ABSENT: wheezes Cardiovascular exam: PRESENT: RRR GI/Abdominal exam: PRESENT: normal bowel sounds - Protuberant nontender., other - Protuberant nontender Rectal exam: PRESENT: deferred Extremities exam: PRESENT: +2 edema Neurological exam: PRESENT: CN II-XII grossly intact Psychiatric exam: PRESENT: normal mood - Lesions on his arms Results Laboratory Results: 01/11/17 05:35 01/11/17 05:35 01/13/17 06:35 Carbonic Acid Cancelled HCO3/H2CO3 Ratio Cancelled ABG pH Cancelled ABG pCO2 Cancelled ABG pO2 Cancelled ABG HCO3 Cancelled ABG O2 Saturation Cancelled ABG Base Excess Cancelled FiO2 Cancelled Impressions: Chest X-Ray 01/12/17 00:00 IMPRESSION: CARDIAC ENLARGEMENT. VASCULAR CONGESTION. Bilateral basilar opacities without improvement. Assessment & Plan - Diagnosis (1) Respiratory failure Qualifiers: Chronicity: acute Respiratory failure complication: hypoxia and hypercapnia Qualified Code(s): J96.01 - Acute respiratory failure with hypoxia ; J96.02 - Acute respiratory failure with hypercapnia Is this a current diagnosis for this admission?: Yes Plan: Combined hypoxic hypercapnic respiratory failure. This may be a chronic issue related to patient body habitus patient may have underlying obesity hypoventilation syndrome and obstructive sleep apnea. Patient has never been evaluated for this in the past however patient should follow-up with her psychology lecturer and have a formal sleep study once his pneumonia is completely treated. Despite CO2 retention, patient appears to be doing well. BiPAP settings had been adjusted to 24/10 with FiO2 of 45. Results of cardiac echo are still pending suspect that patient may have underlying pulmonary hypertension and/or congestive heart failure. (2) Pneumonia Qualifiers: Pneumonia type: due to unspecified organism Laterality: right Lung location: lower lobe of lung Qualified Code(s): J18.1 - Lobar pneumonia, unspecified organism Plan: RLL pneumonia. He is currently being treated with Levaquin. Psychosis did improve however patient was started on steroids for his worsening respiratory symptoms due to his underlying COPD which may lead to worsening leukocytosis. (3) COPD exacerbation Is this a current diagnosis for this admission?: Yes Plan: Patient has underlying COPD currently exacerbated by the left lower lobe pneumonia. Patient continues to smoke despite having this diagnosis. Patient is currently on Pulmicort and DuoNeb scheduled. Patient is also on levaquin. Patient steroid increased to 60 mg IV 3 times daily. (4) Encounter for smoking cessation counseling Is this a current diagnosis for this admission?: Yes Plan: She smokes 2 packs of cigarettes a day. Patient does have a history of COPD and was advised that he should refrain from smoking as this will only make his symptoms worse. Nicotine patch in place. (5) Morbid obesity due to excess calories Is this a current diagnosis for this admission?: Yes Plan: Patient counseled. Patient will benefit from weight loss as this may be contributing to his respiratory status. He has a BMI of 53 Patient told about having friends bring in fast food to him into the hospital. Patient states he would no longer have people bring food to him that he is not supposed to have. Patient also states that one of his antidepressants that [facility] has caused him to gain weight. 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 Patient aspart may need to be adjusted especially patient being on steroids. Will monitor and adjust accordingly. Surely improved once patient is taken off of steroids. (7) Hypertension Qualifiers: Hypertension type: essential hypertension Qualified Code(s): I10 - Essential (primary) hypertension Is this a current diagnosis for this admission?: Yes Plan: Will continue lisinopril and lasix. He was also started on low-dose beta- claribel as there is concern that patient may have underlying congestive heart failure. (8) Pedal edema Plan: Patient venous Doppler is negative for DVT however patient continues to have pedal edema although improved. Will encourage patient to keep feet elevated. We will continue with Lasix 40 mg IV twice daily. Patient did receive a 60 g dose was 01/12/2017 after which he put out a large volume of urine. Cardiac echo was completed today to evaluate for systolic or diastolic heart failure. Still awaiting results. - Time Time Spent with patient: 15-24 minutes Anticipated discharge: Home
--- NOTE | 2017-01-13 19:02 | XCELERA REPORT ---
[address] [address] Transthoracic Echocardiogram Report Name: CRYSTAL BRADLEY Age: 51 yrs Gender: Male : 1965 Patient Status: Inpatient Patient Location: [address] [place] [address] Study Date: 01/13/2017 10:16 AM Height: 72 in Weight: 390 lb BSA: 2.8 m2 Procedure: A two-dimensional transthoracic echocardiogram with color flow and Doppler was performed. Study Quality: Technically suboptimal. Reason For Study: SOB History: Shortness of breath. Ordering Physician: GEORGINA PINO Performed By: All Yoder Interpretation Summary Study Quality: Technically suboptimal. The left ventricle is normal in size. There is normal left ventricular wall thickness. LV EF is 65% Left ventricular systolic function is normal. Doppler measurements suggest impaired left ventricular relaxation, which is associated with grade I/IV or mild diastolic dysfunction Probably no wall motion . The left atrium is mildly dilated. There is no evidence of mitral valve prolapse. There is no vegetation seen on the mitral valve. There is no mitral valve stenosis. There is a trace amount of mitral regurgitation There is no aortic valve stenosis There is no LVOT obstruction. No aortic regurgitation is present. There is no tricuspid stenosis. There is a trace to mild amount of tricuspid regurgitation There is mild pulmonary hypertension by echo RVSP is 36 mm of Hg , with RA mean of 10. There is no pericardial effusion. MMode/2D Measurements & Calculations RVDd: 2.9 cm LVIDd: 4.6 cm FS: 30.3 % Ao root diam: 3.3 cm IVSd: 0.98 cm LVIDs: 3.2 cm EDV(Teich): 99.3 ml LVPWd: 0.98 cm ESV(Teich): 42.0 ml Ao root area: 8.7 cm2 EF(Teich): 57.7 % LA dimension: 4.1 cm Doppler Measurements & Calculations MV E max antonio: MV P1/2t max antonio: Ao V2 max: LV V1 max P.5 cm/sec 83.1 cm/sec 156.4 cm/sec 5.0 mmHg MV A max antonio: MV P1/2t: 39.8 msec Ao max PG: LV V1 max: 85.7 cm/sec 9.8 mmHg 112.3 cm/sec MV E/A: 0.94 MVA(P1/2t): 5.5 cm2 MV dec slope: 611.6 cm/sec2 PA V2 max: TR max antonio: RAP systole: 95.0 cm/sec 255.4 cm/sec 10.0 mmHg PA max PG: TR max P.1 mmHg 3.6 mmHg RVSP(TR): 36.1 mmHg Left Ventricle The left ventricle is normal in size. There is normal left ventricular wall thickness. LV EF is 65%. Left ventricular systolic function is normal. Doppler measurements suggest impaired left ventricular relaxation, which is associated with grade I/IV or mild diastolic dysfunction. Probably no wall motion . Right Ventricle The right ventricular apex is not well visualized. Atria Right atrium not well visualized secondary to technical limitations. The left atrium is mildly dilated. Mitral Valve There is no evidence of mitral valve prolapse. There is no vegetation seen on the mitral valve. There is no mitral valve stenosis. There is a trace amount of mitral regurgitation. Aortic Valve There is no aortic valvular vegetation. There is no aortic valve stenosis. There is no LVOT obstruction. No aortic regurgitation is present. Tricuspid Valve There is no tricuspid stenosis. There is a trace to mild amount of tricuspid regurgitation. There is mild pulmonary hypertension by echo. RVSP is 36 mm of Hg , with RA mean of 10. Pulmonic Valve The pulmonic valve is not well visualized. Great Vessels The aortic root is normal size. Effusions There is no pericardial effusion. : GEORGINA PINO Lakshmi
[2017-01-13] MEDS: INSULIN GLARGINE,HUM.REC.ANLOG 1,000 UNIT/10 ML UNIT SUBCUT SCH (21:43)
[2017-01-13] MEDS: ATORVASTATIN CALCIUM 10 MG TABLET PO SCH (21:46)
[2017-01-14] MEDS: IPRATROPIUM/ALBUTEROL 0.5-2.5 MG/3 ML AMPUL NEB SCH ×4 (02:38→20:30)
[2017-01-14] MEDS: METHYLPREDNISOLONE INJ 40 MG/1 ML SDV IV SCH ×3 (05:33→22:38)
[2017-01-14] MEDS: INSULIN LISPRO 100 UNIT/ML 3 ML VIAL SUBCUT PRN ×4 (08:21→22:32)
[2017-01-14 08:46] LABS: ABSOLUTE BASOPHILS # (AUTO) 0.1 10^3/uL (0.0-0.2); ABSOLUTE MONOCYTES (AUTO) 0.4 10^3/uL (0.1-1.4); ABSOLUTE NEUT (AUTO) 14.3 10^3/uL (1.7-8.2); BASOPHILS % (AUTO) 0.4 % (0-2); HEMATOCRIT 50.9 % (37.9-51.0); HEMOGLOBIN 16.3 g/dL (13.5-17.0); LYMPHOCYTES % (AUTO) 6.5 % (13-45); MEAN CORPUSCULAR HEMOGLOBIN 27.4 pg (27.0-33.4); MEAN CORPUSCULAR HGB CONC 32.1 g/dL (32.0-36.0); MEAN CORPUSCULAR VOLUME 85 fl (80-97); MONOCYTES % (AUTO) 2.4 % (3-13); RED BLOOD COUNT 5.97 10^6/uL (4.35-5.55); RED CELL DISTRIBUTION WIDTH 15.9 % (11.5-14.0); SEGMENTED NEUTROPHILS % (AUTO) 90.7 % (42-78); WHITE BLOOD COUNT 15.7 10^3/uL (4.0-10.5)
[2017-01-14] MEDS: BUDESONIDE NEB 0.5 MG/2 ML AMPUL NEB SCH ×2 (08:49→20:35)
[2017-01-14 09:05] LABS: BLOOD UREA NITROGEN 27 mg/dL (7-20); CALCIUM 9.9 mg/dL (8.4-10.2); CHLORIDE 88 mmol/L (98-107); CREATININE RESULT 0.91 mg/dL (0.52-1.25); GLUCOSE 276 mg/dL (75-110); MAGNESIUM 2.3 mg/dL (1.6-2.3); POTASSIUM 4.8 mmol/L (3.6-5.0); SODIUM 138.7 mmol/L (137-145)
[2017-01-14 09:14] LABS: ANION GAP 15 (5-19); CARBON DIOXIDE 36 mmol/L (22-30)
[2017-01-14] MEDS ORDERED: LEVOFLOXACIN 750 MG TABLET PO SCH (10:00)
[2017-01-14] MEDS ORDERED: LEVOFLOXACIN 750 MG/D5W RTU 750 MG/150 ML RTUPB IV SCH (10:00)
[2017-01-14] MEDS: ENOXAPARIN SODIUM INJ 40 MG/0.4 ML DISP.SYRIN SUBCUT SCH (10:30)
[2017-01-14] MEDS: FAMOTIDINE 20 MG TABLET PO SCH ×2 (10:36→22:31)
[2017-01-14] MEDS: CYANOCOBALAMIN (VITAMIN B-12) 1,000 MCG TABLET PO SCH (10:36)
[2017-01-14] MEDS: ASPIRIN 81 MG TABLET, ENT COATED PO SCH (10:36)
[2017-01-14] MEDS: GUAIFENESIN 600 MG TABLET.SA PO SCH ×2 (10:37→22:32)
[2017-01-14] MEDS: LISINOPRIL 10 MG TABLET PO SCH (10:37)
[2017-01-14] MEDS: CARVEDILOL 3.125 MG TABLET PO SCH ×2 (10:38→22:32)
[2017-01-14] MEDS: VENLAFAXINE HCL 75 MG TABLET PO SCH (10:38)
[2017-01-14] MEDS: FUROSEMIDE INJ/PF 40 MG/4 ML SDV IV SCH ×2 (10:39→22:33)
[2017-01-14] MEDS: NICOTINE 21 MG/24 HR PATCH.TD24 TD SCH (10:39)
--- NOTE | 2017-01-14 16:58 | PDOC PROGRESS REPORT ---
Subjective Progress Note for:: 01/14/17 Subjective:: The patient is a morbidly obese 51-year-old male with a past medical history significant for insulin requiring type 2 diabetes, COPD and ongoing tobacco abuse. He presented to the emergency room with increased shortness of breath. [facility] and was started on breathing treatments and Levaquin. In spite of this the patient's breathing worsened and he presented to the emergency room for further evaluation and treatment. He was found to have acute hypoxic and hypercapnic respiratory failure with CO2 levels in the 70s and oxygen saturations in the low 80s. The patient was placed on BiPAP and referred for admission. Initial chest x-ray was concerning for an early pneumonia. He also was felt to be having a COPD exacerbation. The patient was admitted to the hospital. He was placed on IV Levaquin as well as aggressive breathing treatments. He has since been started on IV Solu-Medrol. He had a 2D echocardiogram performed which revealed evidence of diastolic dysfunction. The right ventricle was not well visualized but he did have mildly elevated right ventricular pressures concerning for mild pulmonary hypertension. Overall the patient has been weaned off of his BiPAP. He currently is being aggressively diuresed with IV Lasix and making good urine. Today when I saw him he states that he continues to be short of breath especially when he tries to get up and move around. He has not yet been seen by physical therapy. He states that he no longer has yellow sputum production that it is just white frothy sputum at this point. He has had no chest pain or shortness of breath. No fevers or chills. He has had no heart palpitations that he is aware of. He has had no nausea, vomiting or diarrhea. He has good appetite. He has no abdominal pain. He is having normal bowel movements. He denies dysuria, frequency or hematuria. Physical Exam Vital Signs: Temp Pulse Resp BP Pulse Ox 98.4 F 80 19 133/85 H 91 L 01/14/17 12:27 01/14/17 14:00 01/14/17 13:57 01/14/17 12:27 01/14/17 13:57 Intake & Output 01/13/17 01/14/17 01/15/17 06:59 06:59 06:59 Intake Total 1566 1240 Output Total 8450 1800 Balance -9689 -560 Weight 177.4 kg 175.5 kg General appearance: PRESENT: no acute distress, cooperative, morbidly obese, well-developed, well-nourished Head exam: PRESENT: atraumatic, normocephalic Mouth exam: PRESENT: moist, neck supple Respiratory exam: PRESENT: crackles, decreased breath sounds, wheezes, other. ABSENT: accessory muscle use, chest wall tenderness Cardiovascular exam: PRESENT: RRR, +S1, +S2 GI/Abdominal exam: PRESENT: normal bowel sounds, soft, other - Abdomen is significantly obese. This exam is somewhat limited due to his body habitus.. ABSENT: rebound, rigid, tenderness Rectal exam: PRESENT: deferred Extremities exam: PRESENT: +2 edema. ABSENT: calf tenderness, clubbing Neurological exam: PRESENT: alert, altered, awake, oriented to person, oriented to time, oriented to situation, CN II-XII grossly intact Psychiatric exam: PRESENT: appropriate affect Skin exam: PRESENT: dry, warm Results Laboratory Results: 01/14/17 08:39 01/14/17 08:39 01/14/17 01/14/17 08:39 08:39 WBC 15.7 H RBC 5.97 H Hgb 16.3 Hct 50.9 MCV 85 MCH 27.4 MCHC 32.1 RDW 15.9 H Plt Count 304 Seg Neutrophils % 90.7 H Lymphocytes % 6.5 L Monocytes % 2.4 L Eosinophils % 0.0 Basophils % 0.4 Absolute Neutrophils 14.3 H Absolute Lymphocytes 1.0 Absolute Monocytes 0.4 Absolute Eosinophils 0.0 Absolute Basophils 0.1 Sodium 138.7 Potassium 4.8 Chloride 88 L Carbon Dioxide 36 H Anion Gap 15 BUN 27 H Creatinine 0.91 Est GFR ( Amer) > 60 Est GFR (Non-Af Amer) > 60 Glucose 276 H Calcium 9.9 Magnesium 2.3 01/14/17 08:39 NT-Pro-B Natriuret Pep 166 Impressions: Chest X-Ray 01/12/17 00:00 IMPRESSION: CARDIAC ENLARGEMENT. VASCULAR CONGESTION. Bilateral basilar opacities without improvement. Assessment & Plan - Diagnosis (1) Acute respiratory failure with hypoxia and hypercapnia Plan: The patient will continue BiPAP at night. He will continue oxygen support. He was not on oxygen prior to this hospitalization. He will continue aggressive breathing treatments and therapy as outlined below. His respiratory failure is multifactorial in nature secondary to congestive heart failure exacerbation, probable early pneumonia, obesity hypoventilation syndrome and probable deconditioning. (2) Acute diastolic CHF (congestive heart failure) Plan: The patient had diastolic dysfunction noted on his echocardiogram. He had normal left ventricular function. Unfortunately the right ventricle was difficult to visualize. He did have mild pulmonary hypertension and mildly elevated right ventricular pressures. I suspect he has an element of right- sided heart failure as well. The patient will continue IV diuresis with Lasix 40 mg IV every 12 hours. He continues in a negative fluid balance. We will continue to keep accurate I's and O's. This is a new diagnosis for the patient. I am going to consult cardiology today for their recommendations. (3) Pneumonia Qualifiers: Pneumonia type: due to unspecified organism Laterality: right Lung location: lower lobe of lung Qualified Code(s): J18.1 - Lobar pneumonia, unspecified organism Plan: Concerns for gram positives and atypicals. He will continue Levaquin but I will transition him to p.o. Levaquin today. This is day number 5 out of 7 days of treatment. (4) COPD exacerbation Is this a current diagnosis for this admission?: Yes Plan: I am going to cut his Solu-Medrol back today to 20 mg IV every 8 hours. He will likely be transitioned to prednisone tomorrow. He is an insulin-dependent diabetic and his blood sugars are markedly uncontrolled. His wheezing while present is not severe. He will continue bronchodilators and aggressive breathing treatments. (5) Obesity hypoventilation syndrome Plan: Certainly this is a large contributor to his respiratory difficulties. I suspect he has untreated sleep apnea. I am going to consult cardiology today. Dr. Brink perform sleep studies as an outpatient and perhaps he could be set up for 1. (6) Morbid obesity Plan: Dietary discretion is advised. 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 His blood sugars are markedly uncontrolled due to his use of IV steroids. I am going to add 10 units of NovoLog 3 times daily before meals along with sliding scale. He will continue 80 units of Lantus at night. (8) Hypertension Qualifiers: Hypertension type: essential hypertension Qualified Code(s): I10 - Essential (primary) hypertension Is this a current diagnosis for this admission?: Yes Plan: Stable. Continue lisinopril (9) Tobacco abuse Plan: I spoke to the patient's today. The patient apparently smokes 3 packs of cigarettes a day. He is highly encouraged to stop smoking in light of his severe respiratory issues. (10) Pedal edema Plan: He had venous Dopplers that were negative for DVT. He has venous stasis changes to both of his lower extremities. I suspect his pedal edema is due to his congestive heart failure. We will continue IV diuresis. (11) Leukocytosis Plan: Secondary to steroids. There is now no evidence of infection. - Time Time Spent with patient: 25-34 minutes Medications reviewed and adjusted accordingly: Yes Disposition: I am going to physical therapy see the patient. I suspect he will be discharged home.
[2017-01-14] MEDS ORDERED: METHYLPREDNISOLONE INJ 40 MG/1 ML SDV IV SCH (18:00)
--- NOTE | 2017-01-14 19:50 | PDOC CONSULTATION ---
Consultation Consult Date: 01/14/17 Attending physician:: CHRIS TALLEY Consult reason:: Shortness of breath History of Present Illness Admission Date/PCP: 01/10/17 15:11 Patient complains of: Shortness of breath History of Present Illness: CRYSTAL BRADLEY is a 51 year old male with a history of morbid obesity type 2 diabetes pretension COPD tobacco abuse presents to the ED with complaint of congestion and shortness of breath. Patient states that he was seen at the [facility] about 5 days ago for congestion and cough. Patient was given breathing treatments and Levaquin. Patient states they did not seem to get him better even 2 days after taking the medications. Today patient states it was really bad and had to come to the hospital for further evaluation. Patient denies any fevers chills he does have productive cough and shortness of breath. Patient does not use oxygen at home nor does he uses CPAP. Patient states that he smokes 2 packs of cigarettes a day but has not had any breathing problems. Patient states about 2 years ago he came to [place] for evaluation and was found to have a pneumonia. In the ED patient was found to be hypoxic and hypercapnic with CO2 in the 70s patient was satting 82% on room air. Patient was placed on BiPAP. Patient chest x-ray was consistent with early pneumonia hospitalist was called to admit patient for further evaluation and treatment. Past Medical History Cardiac Medical History: Reports: None Pulmonary Medical History: Reports: Chronic Obstructive Pulmonary Disease (COPD) , Pneumonia Denies: Asthma, Bronchitis Endocrine Medical History: Reports: Diabetes Mellitus Type 2 Psychiatric Medical History: Reports: Tobacco Dependency Past Surgical History Past Surgical History: Reports: Appendectomy Social History Information Source: Patient Smoking Status: Current Every Day Smoker Cigarettes Packs Per Day: 2 Number of Years Smokin Last Time Smoked: 01/10/17 Frequency of Alcohol Use: None Hx Recreational Drug Use: No Drugs: None Hx Prescription Drug Abuse: No - Advance Directive Resuscitation Status: Full Code Family History Family History: None, Hypertension Parental Family History Reviewed: Yes Children Family History Reviewed: Yes Sibling(s) Family History Reviewed.: Yes Medication/Allergy Home Medications: Levofloxacin [Levaquin 750 mg Tablet] 750 mg PO DAILY #7 tablet 07/27/12 Hydrochlorothiazide 25 mg PO DAILY 01/10/17 Insulin Glargine,Hum.rec.anlog [Lantus] 80 units SUBCUT DAILY 01/10/17 Aspirin [Aspirin EC] 81 mg PO DAILY 01/11/17 Cyanocobalamin (Vitamin B-12) [Vitamin B-12 1000 mcg Tablet] 1,000 mcg PO DAILY 01/11/17 Erythromycin Base [E-Mycin 0.5% Oph Ointment 3.5 gm] 1 applic OU QID 01/11/17 Furosemide 20 mg PO DAILY 01/11/17 Insulin Aspart [Novolog Flexpen] 36 unit SUBCUT QPM 01/11/17 Insulin Aspart [Novolog Flexpen] 46 unit SUBCUT NOON 01/11/17 Lisinopril 20 mg PO DAILY 01/11/17 Metformin HCl 1,500 mg PO DAILY 01/11/17 Pravastatin Sodium [Pravachol] 40 mg PO DAILY 01/11/17 Venlafaxine HCl 37.5 mg PO DAILY 01/11/17 Allergies/Adverse Reactions: No Known Allergies Allergy (Verified 06/11/16 12:50) Review of Systems Review of Systems: Please see history of present illness and past medical history as wall. Constitutional: No fever or chills reported. Head : No recent chronic headaches, recent head injury. Eyes: No recent eye pain, diplopia, redness, discharge, acute visual changes. Ears: No recent chronic ear pain, acute hearing loss, ear discharge. Oral cavity: No recent ulcerations, bleeding, oral cavity discomfort. Neck: No recent acute neck pain reported. Hematologic: No recent easy bruising or bleeding or hematologic malignancy reported. Lymphatic: No recent lymphatic malignancy, chronic lymphadenopathy reported yet Cardiovascular system review: See history of present illness. Respiratory system review: No recent chronic cough, hemoptysis, blood clots in the lungs reported. Mild Shortness of breath on exertion. Patient has noted progressive pedal edema. Gastrointestinal system review: Negative for any recent acute or chronic abdominal pain, hematemesis, melena, recent change in bowel habits. Genitourinary system review: No recent acute or chronic hematuria, flank pain, UTI etc. reported. Skin system review: Negative for any recent abnormal bruising, no rash, no pruritus reported. Neurologic: No prior history of strokes, mini strokes, seizure disorder. Psychologic: No history of major psychosis or major depression reported. Musculoskeletal: Minor aches and pains reported. No acute joint swelling reported. Endocrine: No recent polyuria, polydipsia, recent heat or cold intolerance. Physical Exam Vital Signs: Temp Pulse Resp BP Pulse Ox 98.4 F 80 19 133/85 H 91 L 01/14/17 12:27 01/14/17 14:00 01/14/17 13:57 01/14/17 12:27 01/14/17 13:57 Intake & Output 01/13/17 01/14/17 01/15/17 06:59 06:59 06:59 Intake Total 1566 1240 1228 Output Total 8450 1800 2300 Balance -4035 -560 -1072 Weight 177.4 kg 175.5 kg Exam: GENERAL: well-nourished and in no acute distress. Alert and oriented x3 HEAD: Atraumatic, normocephalic. EYES: Pupils equal round and reactive to light, extraocular movements intact, sclera anicteric, conjunctiva are normal. ENT: TMs normal, nares patent, oropharynx clear without exudates. Moist mucous membranes. No oral ulcerations or bleeding gums noted NECK: supple without lymphadenopathy. Trachea is central. No cervical or axillary lymphadenopathy noted. Carotids are 2+, JVD 10 cm LUNGS: Respiration seems nonlabored, no significant accessory muscle action noted. Bibasilar fine crackles are noted. No dullness noted. CHEST: Palpation of the chest wall shows no significant chest wall tenderness. No other significant abnormalities noted. 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 ABDOMEN: Soft, no significant tenderness appreciated, normoactive bowel sounds. No guarding, no rebound. No rigidity noted . No masses appreciated. EXTREMITIES: Pedal pulses are 1-2+, no calf tenderness noted. No clubbing or cyanosis.2+ pedal edema noted NEUROLOGICAL: Focused neurological exam showed no significant neurologic deficit. Normal speech, no focal weakness appreciated. PSYCH: Normal mood, normal affect. Judgment and insight within normal limits. SKIN: No significant ecchymosis, mild erythematous rash noted both lower leg and feet area. No ulcerations noted. MUSCULOSKELETAL EXAM: No significant joint swelling noted. Results Laboratory Results: 01/14/17 08:39 01/14/17 08:39 01/14/17 01/14/17 08:39 08:39 WBC 15.7 H RBC 5.97 H Hgb 16.3 Hct 50.9 MCV 85 MCH 27.4 MCHC 32.1 RDW 15.9 H Plt Count 304 Seg Neutrophils % 90.7 H Lymphocytes % 6.5 L Monocytes % 2.4 L Eosinophils % 0.0 Basophils % 0.4 Absolute Neutrophils 14.3 H Absolute Lymphocytes 1.0 Absolute Monocytes 0.4 Absolute Eosinophils 0.0 Absolute Basophils 0.1 Sodium 138.7 Potassium 4.8 Chloride 88 L Carbon Dioxide 36 H Anion Gap 15 BUN 27 H Creatinine 0.91 Est GFR ( Amer) > 60 Est GFR (Non-Af Amer) > 60 Glucose 276 H Calcium 9.9 Magnesium 2.3 01/14/17 08:39 NT-Pro-B Natriuret Pep 166 EKG Comments: Sinus rhythm, no acute ST-T wave changes are noted Impressions: Chest X-Ray 01/12/17 00:00 IMPRESSION: CARDIAC ENLARGEMENT. VASCULAR CONGESTION. Bilateral basilar opacities without improvement. Assessment & Plan - Diagnosis (1) Right heart failure Is this a current diagnosis for this admission?: Yes (2) Acute diastolic CHF (congestive heart failure) Is this a current diagnosis for this admission?: Yes (3) Acute respiratory failure with hypoxia and hypercapnia Is this a current diagnosis for this admission?: Yes (4) COPD exacerbation Is this a current diagnosis for this admission?: Yes (5) Hypertension Qualifiers: Hypertension type: essential hypertension Qualified Code(s): I10 - Essential (primary) hypertension Is this a current diagnosis for this admission?: Yes (6) Obesity hypoventilation syndrome Is this a current diagnosis for this admission?: Yes (7) Type 2 diabetes mellitus Qualifiers: Diabetes mellitus complication status: without complication Diabetes mellitus [facility] insulin use: with terminal press operator use Qualified Code(s): E11.9 - Type 2 diabetes mellitus without complications; 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 Patient does have evidence of heart failure based on elevated JVP, pedal edema and symptoms of dyspnea. This is predominantly right-sided. Agree with IV diuretic therapy. Patient will benefit from weight loss, salt and fluid restriction as well as maintenance of proper oxygenation and ventilation. Acute respiratory failure with hypoxemia and hypercapnia: Patient will benefit from noninvasive ventilation especially at night. Continue with oxygen supplementation during the day. Patient will benefit from a sleep study. COPD exacerbation: Continue with bronchodilator therapy. Hypertension: Currently reasonably well controlled. Blood pressure goal should be 135/85 or less. Obesity hypoventilation syndrome: Patient will benefit from aggressive weight loss. Diabetes type 2: Recommend good control but avoid any hyper or hypoglycemia. Morbid obesity: Patient will benefit from aggressive weight loss. Sleep apnea syndrome: There is high likelihood that patient has this. Recommend outpatient evaluation and management. - Time Time Spent: 30 to 50 Minutes - CODE STATUS was discussed, patient remains full code. Surrogate decision-maker unchanged. Multiple medical problems were addressed. More than 50% of the time spent coordinating care, discussing management plans with involved caregivers. Management plans discussed with involved personnels. Medical decision making was of moderate to high complexity , patient's has multiple comorbidities. Medications reviewed and adjusted accordingly: Yes
[2017-01-14] MEDS ORDERED: INSULIN REG, HUMAN 100 UNIT/ML 3 ML VIAL (PYX) IV ONE (22:15)
[2017-01-14] MEDS: ATORVASTATIN CALCIUM 10 MG TABLET PO SCH (22:32)
[2017-01-14] MEDS: INSULIN GLARGINE,HUM.REC.ANLOG 1,000 UNIT/10 ML UNIT SUBCUT SCH (22:32)
[2017-01-15] MEDS: IPRATROPIUM/ALBUTEROL 0.5-2.5 MG/3 ML AMPUL NEB SCH ×4 (02:29→20:21)
[2017-01-15] MEDS: METHYLPREDNISOLONE INJ 40 MG/1 ML SDV IV SCH ×3 (05:19→22:22)
[2017-01-15] MEDS: INSULIN LISPRO 100 UNIT/ML 3 ML VIAL SUBCUT PRN ×3 (07:54→22:22)
[2017-01-15] MEDS: ENOXAPARIN SODIUM INJ 40 MG/0.4 ML DISP.SYRIN SUBCUT SCH (07:54)
[2017-01-15] MEDS ORDERED: INSULIN LISPRO 100 UNIT/ML 3 ML VIAL SUBCUT SCH (08:00)
[2017-01-15] MEDS: BUDESONIDE NEB 0.5 MG/2 ML AMPUL NEB SCH ×2 (08:35→20:21)
[2017-01-15] MEDS: LEVOFLOXACIN 750 MG TABLET PO SCH (09:54)
[2017-01-15] MEDS: ASPIRIN 81 MG TABLET, ENT COATED PO SCH (09:54)
[2017-01-15] MEDS: CYANOCOBALAMIN (VITAMIN B-12) 1,000 MCG TABLET PO SCH (09:54)
[2017-01-15] MEDS: GUAIFENESIN 600 MG TABLET.SA PO SCH ×2 (09:54→22:20)
[2017-01-15] MEDS: FAMOTIDINE 20 MG TABLET PO SCH ×2 (09:54→22:20)
[2017-01-15] MEDS: CARVEDILOL 3.125 MG TABLET PO SCH ×2 (09:55→22:21)
[2017-01-15] MEDS: VENLAFAXINE HCL 75 MG TABLET PO SCH (09:55)
[2017-01-15] MEDS: LISINOPRIL 10 MG TABLET PO SCH (09:56)
[2017-01-15] MEDS: NICOTINE 21 MG/24 HR PATCH.TD24 TD SCH (09:57)
[2017-01-15] MEDS ORDERED: FUROSEMIDE INJ/PF 40 MG/4 ML SDV IV ONE (10:30)
[2017-01-15] MEDS: INSULIN LISPRO 100 UNIT/ML 3 ML VIAL SUBCUT SCH ×2 (12:07→17:15)
--- NOTE | 2017-01-15 12:58 | PDOC PROGRESS REPORT ---
Subjective Progress Note for:: 01/15/17 Subjective:: The patient is a morbidly obese 51-year-old male with a past medical history significant for insulin requiring type 2 diabetes, COPD and ongoing tobacco abuse. He presented to the emergency room with increased shortness of breath. [facility] and was started on breathing treatments and Levaquin. In spite of this the patient's breathing worsened and he presented to the emergency room for further evaluation and treatment. He was found to have acute hypoxic and hypercapnic respiratory failure with CO2 levels in the 70s and oxygen saturations in the low 80s. The patient was placed on BiPAP and referred for admission. Initial chest x-ray was concerning for an early pneumonia. He also was felt to be having a COPD exacerbation. The patient was admitted to the hospital. He was placed on IV Levaquin as well as aggressive breathing treatments. He has since been started on IV Solu-Medrol. He had a 2D echocardiogram performed which revealed evidence of diastolic dysfunction. The right ventricle was not well visualized but he did have mildly elevated right ventricular pressures concerning for mild pulmonary hypertension. Overall the patient has been weaned off of his BiPAP. He currently is being aggressively diuresed with IV Lasix and making good urine. Yesterday he was seen by Dr. Brink from the cardiology service. Dr. Brink feels as if most of his problems are due to right-sided heart failure. He recommended continuing diuresis and this morning we have cut him back to 40 mg once daily. Today when I saw the patient he is resting comfortably in his chair. He still is requiring quite a bit of oxygen currently at 5 L. He states that he continues to feel quite well and certainly much better than when he first came into the hospital. He denies fever chills. He has had no chest pain or heart palpitations. He states he continues to have some wheezing but it is improving. He is not bringing up any sputum today. He has had no nausea or vomiting. He is tolerating his diet. No abdominal pain. No dysuria, frequency or hematuria. Physical Exam Vital Signs: Temp Pulse Resp BP Pulse Ox 98.3 F 87 20 133/83 H 90 L 01/15/17 07:32 01/15/17 08:37 01/15/17 08:37 01/15/17 07:32 01/15/17 08:37 Intake & Output 01/14/17 01/15/17 01/16/17 06:59 06:59 06:59 Intake Total 1240 1918 Output Total 1800 5200 Balance -560 -3282 Weight 175.5 kg 175 kg General appearance: PRESENT: no acute distress, cooperative, obese, well- developed, well-nourished Head exam: PRESENT: atraumatic, normocephalic Respiratory exam: PRESENT: wheezes, other - He has some fine crackles in the lower bases bilaterally. ABSENT: accessory muscle use, chest wall tenderness Cardiovascular exam: PRESENT: RRR, +S1, +S2. ABSENT: diastolic murmur, gallop, rubs, systolic murmur GI/Abdominal exam: PRESENT: firm, normal bowel sounds, other - Abdomen is significantly obese. I could not assess for organomegaly due to the patient's body habitus.. ABSENT: distended, tenderness Extremities exam: PRESENT: +1 edema. ABSENT: calf tenderness, clubbing, tenderness Neurological exam: PRESENT: alert, altered, awake, oriented to person, oriented to place, oriented to time, oriented to situation, CN II-XII grossly intact Psychiatric exam: PRESENT: appropriate affect Skin exam: PRESENT: dry, warm, other - He has venous stasis changes to both of his lower extremities bilaterally Results Laboratory Results: 01/14/17 08:39 01/14/17 08:39 01/14/17 08:39 NT-Pro-B Natriuret Pep 166 Impressions: Chest X-Ray 01/12/17 00:00 IMPRESSION: CARDIAC ENLARGEMENT. VASCULAR CONGESTION. Bilateral basilar opacities without improvement. Assessment & Plan - Diagnosis (1) Acute respiratory failure with hypoxia and hypercapnia Is this a current diagnosis for this admission?: Yes Plan: The patient will continue BiPAP at night. He will continue oxygen support. He currently is requiring 5 L of oxygen. He was not on oxygen prior to this hospitalization. However I believe the patient may have been hypoxic for quite some time. Patient's states that he smokes at least 3 packs of cigarettes a day and become significantly winded anytime he tries to move or walk. He will continue aggressive breathing treatments and therapy as outlined below. His respiratory failure is multifactorial in nature secondary to congestive heart failure exacerbation, probable early pneumonia, obesity hypoventilation syndrome and deconditioning. (2) Acute diastolic CHF (congestive heart failure) Is this a current diagnosis for this admission?: Yes Plan: The patient had diastolic dysfunction noted on his echocardiogram. He had normal left ventricular function. Unfortunately the right ventricle was difficult to visualize. He did have mild pulmonary hypertension and mildly elevated right ventricular pressures. He was evaluated by the cardiology service who feels as if this is also more likely related to right-sided heart failure event. In any event he will continue IV Lasix. Cardiology changed him to IV Lasix 40 mg once daily today. The patient is quite pleased with this as he was urinating quite a bit at night. (3) Pneumonia Qualifiers: Pneumonia type: due to unspecified organism Laterality: right Lung location: lower lobe of lung Qualified Code(s): J18.1 - Lobar pneumonia, unspecified organism Plan: Concerns for gram positives and atypicals. He has been transitioned to p.o. Levaquin. This is day number 6 out of 7 days of treatment. (4) COPD exacerbation Is this a current diagnosis for this admission?: Yes Plan: I changed the patient's IV Solu-Medrol to 20 mg every 8 hours yesterday. He is still wheezing today. Blood sugars are markedly uncontrolled. I will leave him on IV Solu-Medrol today and hopefully we can change him over to a p.o. regimen and rapidly taper it start to taper it in the next day or 2 (5) Obesity hypoventilation syndrome Is this a current diagnosis for this admission?: Yes Plan: Certainly this is a large contributor to his respiratory difficulties. I suspect he has untreated sleep apnea. He will need an outpatient sleep study. The patient follows with [facility] who could set this up or perhaps the [place] would allow him to have a sleep study performed by Dr. Brink. (6) Morbid obesity Is this a current diagnosis for this admission?: Yes Plan: Dietary discretion is advised. (7) Type 2 diabetes mellitus Qualifiers: Diabetes mellitus complication status: without complication Diabetes mellitus intermission coordinator insulin use: with intermission coordinator use Qualified Code(s): E11.9 - Type 2 diabetes mellitus without complications; Z79.4 - skilled nursing (current) use of insulin Is this a current diagnosis for this admission?: Yes Plan: The patient has insulin requiring type 2 diabetes mellitus. His blood sugars are markedly uncontrolled due to his use of IV steroids. Today I am going to increase the parameters on his sliding scale as he has significant insulin resistance. Yesterday he was started on 10 units of Humalog 3 times daily before meals. This is not made any difference whatsoever. He will continue Lantus 80 units at night. I am going to increase his mealtime coverage to 20 units daily before meals. We will follow-up with his blood sugars tomorrow. (8) Hypertension Qualifiers: Hypertension type: essential hypertension Qualified Code(s): I10 - Essential (primary) hypertension Is this a current diagnosis for this admission?: Yes Plan: Stable. Continue lisinopril (9) Tobacco abuse Plan: I spoke to the patient's yesterday. The patient apparently smokes 3 packs of cigarettes a day. He is highly encouraged to stop smoking in light of his severe respiratory issues. (10) Pedal edema Plan: He had venous Dopplers that were negative for DVT. He has venous stasis changes to both of his lower extremities. I suspect his pedal edema is due to his congestive heart failure, likely right-sided failure. We will continue IV diuresis. (11) Leukocytosis Plan: Secondary to steroids. There is now no evidence of infection. - Time Time Spent with patient: 25-34 minutes - Inpatient Certification Medical Necessity: Other - The patient continues to require IV diuresis as well as IV steroids. He still has oxygen requirements of 5 L. He very well may need oxygen at home but at this point would like to get him down to a more reasonable level. Continued hospitalization will be ongoing. Timing of disposition will be determined by his clinical course.
--- NOTE | 2017-01-15 20:09 | PDOC PROGRESS REPORT ---
Subjective Progress Note for:: 01/15/17 Subjective:: Patient seems to be doing better with gradual improvement. Pt is denying any chest arm or neck discomfort. Patient denying any PND, orthopnea. Patient denied any sustained palpitations, dizziness, syncope, near syncope. Patient denying any fever chills. Patient denying any other significant discomfort. Patient is maintaining sinus rhythm. Review of systems: Rest review of systems negative. Medications: Medications have been reviewed. Physical Exam Vital Signs: Temp Pulse Resp BP Pulse Ox 98.3 F 89 18 112/73 86 L 01/15/17 19:37 01/15/17 19:37 01/15/17 19:37 01/15/17 19:37 01/15/17 19:37 Intake & Output 01/14/17 01/15/17 01/16/17 06:59 06:59 06:59 Intake Total 1240 1918 1197 Output Total 1800 5200 Balance -560 -3282 1197 Weight 175.5 kg 175 kg Exam: GENERAL: well-nourished and in no acute distress. Alert and oriented x3 HEAD: Atraumatic, normocephalic. EYES: Pupils equal round and reactive to light, extraocular movements intact, sclera anicteric, conjunctiva are normal. ENT: TMs normal, nares patent, oropharynx clear without exudates. Moist mucous membranes. No oral ulcerations or bleeding gums noted NECK: supple without lymphadenopathy. Trachea is central. No cervical or axillary lymphadenopathy noted. Carotids are 2+, JVD WNL LUNGS: Respiration seems nonlabored, no significant accessory muscle action noted. Breath sounds clear to auscultation bilaterally and equal noted. No wheezes rales or rhonchi noted. No significant dullness noted on percussion. CHEST: Palpation of the chest wall shows no significant chest wall tenderness. No other significant abnormalities noted. 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 ABDOMEN: Soft, no significant tenderness appreciated, normoactive bowel sounds. No guarding, no rebound. No rigidity noted . No masses appreciated. EXTREMITIES: Pedal pulses are 1-2+, no calf tenderness noted. No clubbing or cyanosis. 2+ pedal edema noted NEUROLOGICAL: Focused neurological exam showed no significant neurologic deficit. Normal speech, no focal weakness appreciated. PSYCH: Normal mood, normal affect. Judgment and insight within normal limits. SKIN: No significant ecchymosis, ulcerations or signs of pruritus noted. Mild erythematous rash noted both feet. MUSCULOSKELETAL EXAM: No significant joint swelling noted. Results Laboratory Results: 01/14/17 08:39 01/14/17 08:39 01/10/17 17:00 Blood Blood Culture - Final NO GROWTH IN 5 DAYS 01/14/17 08:39 NT-Pro-B Natriuret Pep 166 Impressions: Chest X-Ray 01/12/17 00:00 IMPRESSION: CARDIAC ENLARGEMENT. VASCULAR CONGESTION. Bilateral basilar opacities without improvement. Assessment & Plan - Diagnosis (1) Right heart failure Is this a current diagnosis for this admission?: Yes (2) Acute diastolic CHF (congestive heart failure) Is this a current diagnosis for this admission?: Yes (3) Acute respiratory failure with hypoxia and hypercapnia Is this a current diagnosis for this admission?: Yes (4) COPD exacerbation Is this a current diagnosis for this admission?: Yes (5) Hypertension Qualifiers: Hypertension type: essential hypertension Qualified Code(s): I10 - Essential (primary) hypertension Is this a current diagnosis for this admission?: Yes (6) Obesity hypoventilation syndrome Is this a current diagnosis for this admission?: Yes (7) Type 2 diabetes mellitus Qualifiers: Diabetes mellitus complication status: without complication Diabetes mellitus fci insulin use: with fci use Qualified Code(s): E11.9 - Type 2 diabetes mellitus without complications; Z79.4 - MCFP (current) use of insulin Is this a current diagnosis for this admission?: Yes (8) Morbid obesity Is this a current diagnosis for this admission?: Yes (9) Sleep apnea syndrome Qualifiers: Sleep apnea type: unspecified type Qualified Code(s): G47.30 - Sleep apnea , unspecified Is this a current diagnosis for this admission?: Yes - Notes Notes: Ordered nurses to decrease Lasix to 40 mg IV daily. Diastolic and right-sided heart failure: 2D echo shows normal LVEF. Patient does have evidence of heart failure based on elevated JVP, pedal edema and symptoms of dyspnea. This is predominantly right-sided. Agree with IV diuretic therapy. Patient will benefit from weight loss, salt and fluid restriction as well as maintenance of proper oxygenation and ventilation. Today JVP was not noted to be elevated. Therefore have reduced IV Lasix to 40 mg daily. Acute respiratory failure with hypoxemia and hypercapnia: Patient will benefit from noninvasive ventilation especially at night. Continue with oxygen supplementation during the day. Patient will benefit from a sleep study. COPD exacerbation: Continue with bronchodilator therapy. Hypertension: Currently reasonably well controlled. Blood pressure goal should be 135/85 or less. Obesity hypoventilation syndrome: Patient will benefit from aggressive weight loss. Diabetes type 2: Recommend good control but avoid any hyper or hypoglycemia. Morbid obesity: Patient will benefit from aggressive weight loss. Sleep apnea syndrome: There is high likelihood that patient has this. Recommend outpatient evaluation and management. - Time Time with patient: 15-25 minutes - CODE STATUS was discussed, patient remains full code. Surrogate decision-maker unchanged. Multiple medical problems were addressed. More than 50% of the time spent coordinating care, discussing management plans with involved caregivers. Management plans discussed with involved personnels. Medical decision making was of moderate to high complexity , patient's has multiple comorbidities. Medications reviewed and adjusted accordingly: Yes
[2017-01-15] MEDS: INSULIN GLARGINE,HUM.REC.ANLOG 1,000 UNIT/10 ML UNIT SUBCUT SCH (22:22)
[2017-01-15] MEDS: ATORVASTATIN CALCIUM 10 MG TABLET PO SCH (22:22)
[2017-01-16] MEDS: IPRATROPIUM/ALBUTEROL 0.5-2.5 MG/3 ML AMPUL NEB SCH ×4 (01:58→19:22)
[2017-01-16] MEDS: METHYLPREDNISOLONE INJ 40 MG/1 ML SDV IV SCH (05:24)
[2017-01-16 05:25] LABS: ABSOLUTE BASOPHILS # (AUTO) 0.1 10^3/uL (0.0-0.2); ABSOLUTE LYMPHOCYTES (AUTO) 1.7 10^3/uL (0.5-4.7); ABSOLUTE MONOCYTES (AUTO) 0.9 10^3/uL (0.1-1.4); ABSOLUTE NEUT (AUTO) 13.5 10^3/uL (1.7-8.2); BASOPHILS % (AUTO) 0.4 % (0-2); EOSINOPHILS % (AUTO) 0.2 % (0-6); HEMATOCRIT 51.5 % (37.9-51.0); HEMOGLOBIN 16.3 g/dL (13.5-17.0); HGB HCT DIFFERENCE -2.6; LYMPHOCYTES % (AUTO) 10.6 % (13-45); MEAN CORPUSCULAR HEMOGLOBIN 27.2 pg (27.0-33.4); MEAN CORPUSCULAR HGB CONC 31.7 g/dL (32.0-36.0); MEAN CORPUSCULAR VOLUME 86 fl (80-97); MONOCYTES % (AUTO) 5.5 % (3-13); RED BLOOD COUNT 6.01 10^6/uL (4.35-5.55); RED CELL DISTRIBUTION WIDTH 15.6 % (11.5-14.0); SEGMENTED NEUTROPHILS % (AUTO) 83.3 % (42-78); WHITE BLOOD COUNT 16.2 10^3/uL (4.0-10.5)
[2017-01-16 05:46] LABS: ANION GAP 8 (5-19); BLOOD UREA NITROGEN 31 mg/dL (7-20); CALCIUM 9.3 mg/dL (8.4-10.2); CARBON DIOXIDE 38 mmol/L (22-30); CHLORIDE 91 mmol/L (98-107); CREATININE RESULT 0.85 mg/dL (0.52-1.25); GLUCOSE 254 mg/dL (75-110); MAGNESIUM 2.4 mg/dL (1.6-2.3); POTASSIUM 4.8 mmol/L (3.6-5.0); SODIUM 136.5 mmol/L (137-145)
[2017-01-16] MEDS: INSULIN LISPRO 100 UNIT/ML 3 ML VIAL SUBCUT PRN ×4 (07:39→22:18)
[2017-01-16] MEDS: INSULIN LISPRO 100 UNIT/ML 3 ML VIAL SUBCUT SCH ×3 (07:40→16:39)
[2017-01-16] MEDS: ENOXAPARIN SODIUM INJ 40 MG/0.4 ML DISP.SYRIN SUBCUT SCH (07:43)
[2017-01-16] MEDS: FUROSEMIDE INJ/PF 40 MG/4 ML SDV IV SCH (07:43)
[2017-01-16] MEDS: BUDESONIDE NEB 0.5 MG/2 ML AMPUL NEB SCH ×2 (08:35→19:22)
[2017-01-16] MEDS: ASPIRIN 81 MG TABLET, ENT COATED PO SCH (10:08)
[2017-01-16] MEDS: FAMOTIDINE 20 MG TABLET PO SCH ×2 (10:10→22:17)
[2017-01-16] MEDS: VENLAFAXINE HCL 75 MG TABLET PO SCH (10:11)
[2017-01-16] MEDS: CYANOCOBALAMIN (VITAMIN B-12) 1,000 MCG TABLET PO SCH (10:11)
[2017-01-16] MEDS: GUAIFENESIN 600 MG TABLET.SA PO SCH ×2 (10:11→22:17)
[2017-01-16] MEDS: LEVOFLOXACIN 750 MG TABLET PO SCH (10:11)
[2017-01-16] MEDS: CARVEDILOL 3.125 MG TABLET PO SCH ×2 (10:12→22:17)
[2017-01-16] MEDS: LISINOPRIL 10 MG TABLET PO SCH (10:13)
[2017-01-16] MEDS: NICOTINE 21 MG/24 HR PATCH.TD24 TD SCH (10:14)
--- NOTE | 2017-01-16 11:42 | PDOC PROGRESS REPORT ---
Subjective Progress Note for:: 01/16/17 - HD#6 Subjective:: The patient is a morbidly obese 51-year-old male with a past medical history significant for insulin requiring type 2 diabetes, COPD and ongoing tobacco abuse. He presented to the emergency room January 10, 2017 with increased shortness of breath. Prior to this, [facility] started on breathing treatments and Levaquin. In spite of these interventions, the patient's breathing worsened, so he came to the emergency room for further evaluation and treatment. He was found to have acute hypoxic and hypercapnic respiratory failure with CO2 levels in the 70s and oxygen saturations in the low 80s. The patient was placed on BiPAP and referred for admission. Initial chest x-ray was concerning for an early pneumonia in the right lower lobe. He also was felt to be having a COPD exacerbation. The patient was admitted to the hospital. He was placed on IV Levaquin as well as aggressive breathing treatments. He has since been started on IV Solu-Medrol. He had a 2D echocardiogram performed which revealed evidence of diastolic dysfunction. The right ventricle was not well visualized but he did have mildly elevated right ventricular pressures concerning for mild pulmonary hypertension. Overall, the patient has been weaned off of his BiPAP. He currently is being aggressively diuresed with IV Lasix and making good urine. January 14 he was seen by Dr. Brink from the cardiology service. Dr. Brink felt as if most of his problems are due to right-sided heart failure. He recommended continuing diuresis. He also recommended noninvasive ventilation at night, as well as a formal sleep study as an outpatient. Today, he feels better. he is less short of breath. He feels that his ankles and calves have improved. He is on oxygen 2L. He is hoping to be discharged tomorrow January 17. Physical Exam Vital Signs: Temp Pulse Resp BP Pulse Ox 98.4 F 81 17 134/80 H 93 01/16/17 08:12 01/16/17 08:35 01/16/17 08:35 01/16/17 08:12 01/16/17 08:35 Intake & Output 01/15/17 01/16/17 01/17/17 06:59 06:59 06:59 Intake Total 1918 1208 Output Total 5200 Balance -3282 1208 Weight 175 kg 172.2 kg General appearance: PRESENT: no acute distress, cooperative, morbidly obese Head exam: PRESENT: atraumatic, normocephalic Eye exam: PRESENT: conjunctiva pink, EOMI, PERRLA. ABSENT: scleral icterus Neck exam: ABSENT: carotid bruit, JVD, lymphadenopathy, thyromegaly Respiratory exam: PRESENT: accessory muscle use, clear to auscultation shilpa, rhonchi - scattered Cardiovascular exam: PRESENT: RRR. ABSENT: diastolic murmur, rubs, systolic murmur GI/Abdominal exam: PRESENT: normal bowel sounds, soft. ABSENT: distended, guarding, mass, organolmegaly, rebound, tenderness Extremities exam: PRESENT: +2 edema - ankles and calves Musculoskeletal exam: PRESENT: ambulatory Neurological exam: PRESENT: alert, awake, oriented to person, oriented to place , oriented to time, oriented to situation, CN II-XII grossly intact. ABSENT: motor sensory deficit Skin exam: PRESENT: dry, intact, warm. ABSENT: cyanosis, rash Results Laboratory Results: 01/16/17 05:04 01/16/17 05:04 01/16/17 01/16/17 05:04 05:04 WBC 16.2 H RBC 6.01 H Hgb 16.3 Hct 51.5 H MCV 86 MCH 27.2 MCHC 31.7 L RDW 15.6 H Plt Count 245 Seg Neutrophils % 83.3 H Lymphocytes % 10.6 L Monocytes % 5.5 Eosinophils % 0.2 Basophils % 0.4 Absolute Neutrophils 13.5 H Absolute Lymphocytes 1.7 Absolute Monocytes 0.9 Absolute Eosinophils 0.0 Absolute Basophils 0.1 Sodium 136.5 L Potassium 4.8 Chloride 91 L Carbon Dioxide 38 H Anion Gap 8 BUN 31 H Creatinine 0.85 Est GFR ( Amer) > 60 Est GFR (Non-Af Amer) > 60 Glucose 254 H Calcium 9.3 Magnesium 2.4 H 01/10/17 17:00 Blood Blood Culture - Final NO GROWTH IN 5 DAYS 01/14/17 08:39 NT-Pro-B Natriuret Pep 166 Impressions: Chest X-Ray 01/12/17 00:00 IMPRESSION: CARDIAC ENLARGEMENT. VASCULAR CONGESTION. Bilateral basilar opacities without improvement. Assessment & Plan - Diagnosis (1) Acute diastolic CHF (congestive heart failure) Is this a current diagnosis for this admission?: Yes Plan: Diastolic dysfunction was noted on his echocardiogram. He has responded well symptomatically to IV Lasix 40 mg daily. Continue for now, thin transition to oral at the time of discharge. (2) Acute respiratory failure with hypoxia and hypercapnia Is this a current diagnosis for this admission?: Yes Plan: His respiratory failure is multifactorial secondary to diastolic heart failure, pneumonia, obesity hypoventilation syndrome, and deconditioning. He has improved significantly. He will need to continue BiPAP at night. He is on 2 L of oxygen, from 5 L. We will continue to wean oxygen as tolerated. He was not on oxygen prior to this hospital stay. (3) COPD exacerbation Is this a current diagnosis for this admission?: Yes Plan: Improved. See above. Continue steroids. I will transition him to oral today, hopefully improving his blood sugar/glycemic control. (4) Hypertension Qualifiers: Hypertension type: essential hypertension Qualified Code(s): I10 - Essential (primary) hypertension Is this a current diagnosis for this admission?: Yes Plan: BP okay. Continue lisinopril. (5) Leukocytosis Plan: Secondary to steroids. (6) Morbid obesity due to excess calories Is this a current diagnosis for this admission?: Yes Plan: Exercise as well as dietary discretion has been advised (7) Obesity hypoventilation syndrome Is this a current diagnosis for this admission?: Yes (8) Pedal edema Plan: Likely due to diastolic heart failure. It has improved over the last several days according to the patient. Continue diuretics. (9) Pneumonia Qualifiers: Pneumonia type: due to unspecified organism Laterality: right Lung location: lower lobe of lung Qualified Code(s): J18.1 - Lobar pneumonia, unspecified organism Plan: He is completing a 7 day course of levofloxacin today. (10) Sleep apnea syndrome Qualifiers: Sleep apnea type: unspecified type Qualified Code(s): G47.30 - Sleep apnea , unspecified Is this a current diagnosis for this admission?: Yes (11) Tobacco abuse Plan: He apparently smoked 3 packs of cigarettes per day. He has been encouraged to stop smoking. 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 Surprisingly, they are not as high as one would expect while he is on IV steroids. It looks like his usual dose of insulin was decreased at the time he was admitted. I will resume his usual dose of insulin. - Time Time Spent with patient: 25-34 minutes Smoking Cessation Education: 3 to 10 minutes Medications reviewed and adjusted accordingly: Yes Anticipated discharge: Home Within: within 24 hours - Inpatient Certification Based on my medical assessment, after consideration of the patient's comorbidities, presenting symptoms, or acuity I expect that the services needed warrant INPATIENT care.: Yes I certify that my determination is in accordance with my understanding of Medicare's requirements for reasonable and necessary INPATIENT services [42 CFR 412.3e].: Yes Medical Necessity: Need For Continuous Telemetry Monitoring, Other - IV furosemide
[2017-01-16] MEDS: METFORMIN HCL 500 MG TABLET PO SCH (16:42)
--- NOTE | 2017-01-16 20:43 | PDOC PROGRESS REPORT ---
Subjective Progress Note for:: 01/16/17 Subjective:: Patient seems to be doing better with gradual improvement. Pt is denying any chest arm or neck discomfort. Patient denying any PND, orthopnea. Patient denied any sustained palpitations, dizziness, syncope, near syncope. Patient denying any fever chills. Patient denying any other significant discomfort. Patient is maintaining sinus rhythm. Review of systems: Rest review of systems negative. Medications: Medications have been reviewed. Physical Exam Vital Signs: Temp Pulse Resp BP Pulse Ox 97.4 F 79 18 125/71 93 01/16/17 15:18 01/16/17 19:22 01/16/17 19:22 01/16/17 15:18 01/16/17 19:22 Intake & Output 01/15/17 01/16/17 01/17/17 06:59 06:59 06:59 Intake Total 1918 1208 1895 Output Total 5200 Balance -3282 1208 1895 Weight 175 kg 172.2 kg Exam: GENERAL: well-nourished and in no acute distress. Alert and oriented x3 HEAD: Atraumatic, normocephalic. EYES: Pupils equal round and reactive to light, extraocular movements intact, sclera anicteric, conjunctiva are normal. ENT: TMs normal, nares patent, oropharynx clear without exudates. Moist mucous membranes. No oral ulcerations or bleeding gums noted NECK: supple without lymphadenopathy. Trachea is central. No cervical or axillary lymphadenopathy noted. Carotids are 2+, JVD 8 cm LUNGS: Respiration seems nonlabored, no significant accessory muscle action noted. Breath sounds clear to auscultation bilaterally and equal noted. No wheezes rales or rhonchi noted. No significant dullness noted on percussion. CHEST: Palpation of the chest wall shows no significant chest wall tenderness. No other significant abnormalities noted. 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 ABDOMEN: Soft, no significant tenderness appreciated, normoactive bowel sounds. No guarding, no rebound. No rigidity noted . No masses appreciated. EXTREMITIES: Pedal pulses are 1-2+, no calf tenderness noted. No clubbing or cyanosis. 1-2 + pedal edema noted NEUROLOGICAL: Focused neurological exam showed no significant neurologic deficit. Normal speech, no focal weakness appreciated. PSYCH: Normal mood, normal affect. Judgment and insight within normal limits. SKIN: No significant ecchymosis, or signs of pruritus noted. Mild erythematous rash noted both feet MUSCULOSKELETAL EXAM: No significant joint swelling noted. Results Laboratory Results: 01/16/17 05:04 01/16/17 05:04 01/16/17 01/16/17 05:04 05:04 WBC 16.2 H RBC 6.01 H Hgb 16.3 Hct 51.5 H MCV 86 MCH 27.2 MCHC 31.7 L RDW 15.6 H Plt Count 245 Seg Neutrophils % 83.3 H Lymphocytes % 10.6 L Monocytes % 5.5 Eosinophils % 0.2 Basophils % 0.4 Absolute Neutrophils 13.5 H Absolute Lymphocytes 1.7 Absolute Monocytes 0.9 Absolute Eosinophils 0.0 Absolute Basophils 0.1 Sodium 136.5 L Potassium 4.8 Chloride 91 L Carbon Dioxide 38 H Anion Gap 8 BUN 31 H Creatinine 0.85 Est GFR ( Amer) > 60 Est GFR (Non-Af Amer) > 60 Glucose 254 H Calcium 9.3 Magnesium 2.4 H 01/10/17 17:00 Blood Blood Culture - Final NO GROWTH IN 5 DAYS 01/14/17 08:39 NT-Pro-B Natriuret Pep 166 EKG Comments: Telemetry strips shows sinus rhythm without any sustained tachycardia or bradycardia arrhythmias. Impressions: Chest X-Ray 01/12/17 00:00 IMPRESSION: CARDIAC ENLARGEMENT. VASCULAR CONGESTION. Bilateral basilar opacities without improvement. Assessment & Plan - Diagnosis (1) Right heart failure Is this a current diagnosis for this admission?: Yes (2) Acute diastolic CHF (congestive heart failure) Is this a current diagnosis for this admission?: Yes (3) Acute respiratory failure with hypoxia and hypercapnia Is this a current diagnosis for this admission?: Yes (4) COPD exacerbation Is this a current diagnosis for this admission?: Yes (5) Hypertension Qualifiers: Hypertension type: essential hypertension Qualified Code(s): I10 - Essential (primary) hypertension Is this a current diagnosis for this admission?: Yes (6) Obesity hypoventilation syndrome Is this a current diagnosis for this admission?: Yes (7) Type 2 diabetes mellitus Qualifiers: Diabetes mellitus complication status: without complication Diabetes mellitus fpc insulin use: with hot tar roofer use Qualified Code(s): E11.9 - Type 2 diabetes mellitus without complications; Z79.4 - alf (current) use of insulin Is this a current diagnosis for this admission?: Yes (8) Morbid obesity Is this a current diagnosis for this admission?: Yes (9) Sleep apnea syndrome Qualifiers: Sleep apnea type: unspecified type Qualified Code(s): G47.30 - Sleep apnea , unspecified Is this a current diagnosis for this admission?: Yes - Notes Notes: Diastolic and right-sided heart failure: 2D echo shows normal LVEF. Significantly improved but still has some volume overload. Patient does have evidence of heart failure based on elevated JVP, pedal edema and symptoms of dyspnea. This is predominantly right-sided. Continue Lasix 40 mg intravenously. Patient will benefit from weight loss, salt and fluid restriction as well as maintenance of proper oxygenation and ventilation. Acute respiratory failure with hypoxemia and hypercapnia: Patient will benefit from noninvasive ventilation especially at night. Continue with oxygen supplementation during the day. Patient will benefit from a sleep study. COPD exacerbation: Continue with bronchodilator therapy. Hypertension: Currently reasonably well controlled. Blood pressure goal should be 135/85 or less. Obesity hypoventilation syndrome: Patient will benefit from aggressive weight loss. Diabetes type 2: Recommend good control but avoid any hyper or hypoglycemia. Morbid obesity: Patient will benefit from aggressive weight loss. Sleep apnea syndrome: There is high likelihood that patient has this. Recommend outpatient evaluation and management. - Time Time with patient: 15-25 minutes - CODE STATUS was discussed, patient remains full code. Surrogate decision-maker unchanged. Multiple medical problems were addressed. More than 50% of the time spent coordinating care, discussing management plans with involved caregivers. Management plans discussed with involved personnels. Medical decision making was of moderate to high complexity , patient's has multiple comorbidities. Medications reviewed and adjusted accordingly: Yes
[2017-01-16] MEDS: ATORVASTATIN CALCIUM 10 MG TABLET PO SCH (22:17)
[2017-01-16] MEDS: INSULIN GLARGINE,HUM.REC.ANLOG 1,000 UNIT/10 ML UNIT SUBCUT SCH (22:18)
[2017-01-17] MEDS: IPRATROPIUM/ALBUTEROL 0.5-2.5 MG/3 ML AMPUL NEB SCH ×4 (02:49→20:10)
[2017-01-17] MEDS: INSULIN LISPRO 100 UNIT/ML 3 ML VIAL SUBCUT PRN (07:40)
[2017-01-17] MEDS: INSULIN LISPRO 100 UNIT/ML 3 ML VIAL SUBCUT SCH ×3 (07:40→16:54)
[2017-01-17] MEDS: FUROSEMIDE INJ/PF 40 MG/4 ML SDV IV SCH (07:43)
[2017-01-17] MEDS: ENOXAPARIN SODIUM INJ 40 MG/0.4 ML DISP.SYRIN SUBCUT SCH (07:46)
[2017-01-17] MEDS: BUDESONIDE NEB 0.5 MG/2 ML AMPUL NEB SCH ×2 (08:42→20:09)
[2017-01-17] MEDS: CARVEDILOL 3.125 MG TABLET PO SCH ×2 (09:34→23:09)
[2017-01-17] MEDS: LEVOFLOXACIN 750 MG TABLET PO SCH (09:34)
[2017-01-17] MEDS: VENLAFAXINE HCL 75 MG TABLET PO SCH (09:35)
[2017-01-17] MEDS: ASPIRIN 81 MG TABLET, ENT COATED PO SCH (09:37)
[2017-01-17] MEDS: FAMOTIDINE 20 MG TABLET PO SCH ×2 (09:37→23:09)
[2017-01-17] MEDS: GUAIFENESIN 600 MG TABLET.SA PO SCH ×2 (09:37→23:09)
[2017-01-17] MEDS: NICOTINE 21 MG/24 HR PATCH.TD24 TD SCH (09:38)
[2017-01-17] MEDS: LISINOPRIL 10 MG TABLET PO SCH (09:38)
[2017-01-17] MEDS: CYANOCOBALAMIN (VITAMIN B-12) 1,000 MCG TABLET PO SCH (09:39)
--- NOTE | 2017-01-17 14:20 | PDOC DISCHARGE SUMMARY ---
General - Admit/Disc Date/PCP Admission Date/Primary Care Provider: 01/10/17 15:11 Discharge Date: 01/17/17 - Discharge Diagnosis (1) Acute diastolic CHF (congestive heart failure) Is this a current diagnosis for this admission?: Yes (2) Acute respiratory failure with hypoxia and hypercapnia Is this a current diagnosis for this admission?: Yes (3) COPD exacerbation Is this a current diagnosis for this admission?: Yes (4) Encounter for smoking cessation counseling Is this a current diagnosis for this admission?: Yes (5) Hypertension Is this a current diagnosis for this admission?: Yes (7) Morbid obesity Is this a current diagnosis for this admission?: Yes (8) Obesity hypoventilation syndrome Is this a current diagnosis for this admission?: Yes (10) Right heart failure Is this a current diagnosis for this admission?: Yes (11) Type 2 diabetes mellitus Is this a current diagnosis for this admission?: Yes - Additional Information Resuscitation Status: Full Code Discharge Diet: Diabetic, Other (Comments) - 2 gram sodium limitation Discharge Activity: Activity As Tolerated Home Medications: Insulin Glargine,Hum.rec.anlog [Lantus] 80 units SUBCUT DAILY 01/10/17 Aspirin [Aspirin EC] 81 mg PO DAILY 01/11/17 Cyanocobalamin (Vitamin B-12) [Vitamin B-12 1000 mcg Tablet] 1,000 mcg PO DAILY 01/11/17 Erythromycin Base [E-Mycin 0.5% Oph Ointment 3.5 gm] 1 applic OU QID 01/11/17 Insulin Aspart [Novolog Flexpen] 36 unit SUBCUT QPM 01/11/17 Insulin Aspart [Novolog Flexpen] 46 unit SUBCUT NOON 01/11/17 Lisinopril 20 mg PO DAILY 01/11/17 Metformin HCl 1,500 mg PO DAILY 01/11/17 Pravastatin Sodium [Pravachol] 40 mg PO DAILY 01/11/17 Aspirin [Ecotrin 81 mg EC Tablet] 81 mg PO DAILY tabec 01/17/17 Budesonide [Pulmicort Neb 0.5 mg/2 ml Ampul] 0.5 mg NEB RTQ12 30 Days #60 ampul.neb 01/17/17 Carvedilol [Coreg 3.125 mg Tablet] 3.125 mg PO Q12 #60 tablet 01/17/17 Furosemide 40 mg PO DAILY 30 Days tablet 01/17/17 Ipratropium/Albuterol Sulfate [Duoneb 3 ml Ampul] 3 ml NEB RTQ6 30 Days vial.neb 01/17/17 Nicotine [Nicoderm 21 mg/24 Hr Transderm Patch] 1 each TD DAILY 7 Days patch.td24 01/17/17 Venlafaxine HCl [Effexor 75 mg Tablet] 37.5 mg PO DAILY tablet 01/17/17 History of Present Illness History of Present Illness: CRYSTAL BRADLEY is a 51 year old male who presented to the emergency department with progressive shortness of breath despite being recently placed on levaquin in the outpatient setting presumably for acute bronchitis. Hospital Course Hospital Course: The patient is a morbidly obese 51-year-old male with a past medical history significant for insulin requiring type 2 diabetes, COPD and ongoing tobacco abuse. He presented to the emergency room with increased shortness of breath. [facility] and was started on breathing treatments and Levaquin. In spite of this the patient's breathing worsened and he presented to the emergency room for further evaluation and treatment. He was found to have acute hypoxic and hypercapnic respiratory failure with CO2 levels in the 70s and oxygen saturations in the low 80s. The patient was placed on BiPAP and referred for admission. Initial chest x-ray was concerning for an early pneumonia. He also was felt to be having a COPD exacerbation. The patient was admitted to the hospital. He was placed on IV Levaquin as well as aggressive breathing treatments. He has since been started on IV Solu-Medrol. He had a 2D echocardiogram performed which revealed evidence of diastolic dysfunction. The right ventricle was not well visualized but he did have mildly elevated right ventricular pressures concerning for mild pulmonary hypertension. Overall the patient has been weaned off of his BiPAP. He currently is being aggressively diuresed with IV Lasix and making good urine. Yesterday he was seen by Dr. Brink from the cardiology service. Dr. Brink feels as if most of his problems are due to right-sided heart failure. He recommended continuing diuresis. The patient's labs now show that he has a contraction alkalosis. Plus, his hemoglobin and hematocrit are increasing. Therefore, he is likely becoming dry. We have stepped back his dose of Lasix. This has been discussed with cardiology. The patient will not continue hydrochlorothiazide at discharge. The patient will be sent home on oxygen therapy as his room air oxygen saturation is 85%. His oxygen therapy will be at 2 L/min. Physical Exam Vital Signs: Temp Pulse Resp BP Pulse Ox 98.0 F 101 H 18 100/73 91 L 01/17/17 11:53 01/17/17 11:53 01/17/17 11:53 01/17/17 11:53 01/17/17 11:53 Intake & Output 01/16/17 01/17/17 01/18/17 06:59 06:59 06:59 Intake Total 1208 2870 Balance 1208 2870 Weight 172.2 kg 173.5 kg General appearance: PRESENT: no acute distress, cooperative Head exam: PRESENT: atraumatic Eye exam: PRESENT: EOMI Mouth exam: PRESENT: moist Teeth exam: PRESENT: poor dentation - Neck circumference is very large Respiratory exam: PRESENT: wheezes - Wheezing is noted posteriorly in the lower lung hodgson Cardiovascular exam: PRESENT: RRR GI/Abdominal exam: PRESENT: normal bowel sounds, soft - Abdomen is very obese Neurological exam: PRESENT: alert, awake - Patient has a few cutaneous nodules that are chronic in nature. He does not have any acute skin lesions or rashes. Psychiatric exam: PRESENT: appropriate affect Results Laboratory Results: 01/16/17 05:04 01/16/17 05:04 01/14/17 08:39 NT-Pro-B Natriuret Pep 166 Impressions: Chest X-Ray 01/12/17 00:00 IMPRESSION: CARDIAC ENLARGEMENT. VASCULAR CONGESTION. Bilateral basilar opacities without improvement. Plan Discharge Plan: 1. Discharge to home 2. Discharge diet will be diabetic diet with 2 g sodium limitation 3. The patient has follow-up scheduled with the [facility] in [place] which will be no later than January 24, 2017; the patient has a cardiology appointment scheduled at the [facility] in [place] on January 23, 2017 the patient has a repeat sleep study on January 22, 2017. 4. The patient was started on supplemental oxygen this admission for hypoxic respiratory failure. At the current time he does have a BiPAP machine at home. He will continue this. He does have an upcoming sleep study and they can change his settings if needed. 5. It is recommended that the patient have laboratory work to include a chemistry panel and CBC in 1 week; it is recommended that the patient have a repeat chest x-ray in approximately 2-4 weeks to ensure that the opacities present on admission are improved to resolved.
--- NOTE | 2017-01-17 14:30 | Progress Note ---
Provider Note Provider Note: Arranging discharge for this patient took approximately 40-45 minutes today.
[2017-01-17] MEDS: METFORMIN HCL 500 MG TABLET PO SCH (16:59)
--- NOTE | 2017-01-17 20:14 | PDOC PROGRESS REPORT ---
Subjective Progress Note for:: 01/17/17 Subjective:: Patient seems to be doing better with gradual improvement. Pt is denying any chest arm or neck discomfort. Patient denying any PND, orthopnea. Patient denied any sustained palpitations, dizziness, syncope, near syncope. Patient denying any fever chills. Patient denying any other significant discomfort. Patient is maintaining sinus rhythm. Review of systems: Rest review of systems negative. Medications: Medications have been reviewed. Physical Exam Vital Signs: Temp Pulse Resp BP Pulse Ox 98.0 F 93 18 105/61 91 L 01/17/17 15:16 01/17/17 15:16 01/17/17 15:16 01/17/17 15:16 01/17/17 15:16 Intake & Output 01/16/17 01/17/17 01/18/17 06:59 06:59 06:59 Intake Total 1208 2870 1019 Balance 1208 2870 1019 Weight 172.2 kg 173.5 kg Exam: GENERAL: well-nourished and in no acute distress. Alert and oriented x3 HEAD: Atraumatic, normocephalic. EYES: Pupils equal round and reactive to light, extraocular movements intact, sclera anicteric, conjunctiva are normal. ENT: TMs normal, nares patent, oropharynx clear without exudates. Moist mucous membranes. No oral ulcerations or bleeding gums noted NECK: supple without lymphadenopathy. Trachea is central. No cervical or axillary lymphadenopathy noted. Carotids are 2+, JVD WNL LUNGS: Respiration seems nonlabored, no significant accessory muscle action noted. Breath sounds clear to auscultation bilaterally and equal noted. No wheezes rales or rhonchi noted. No significant dullness noted on percussion. CHEST: Palpation of the chest wall shows no significant chest wall tenderness. No other significant abnormalities noted. 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 ABDOMEN: Soft, no significant tenderness appreciated, normoactive bowel sounds. No guarding, no rebound. No rigidity noted . No masses appreciated. EXTREMITIES: Pedal pulses are 1-2+, no calf tenderness noted. No clubbing or cyanosis. 1-2 + pedal edema noted NEUROLOGICAL: Focused neurological exam showed no significant neurologic deficit. Normal speech, no focal weakness appreciated. PSYCH: Normal mood, normal affect. Judgment and insight within normal limits. SKIN: No significant ecchymosis, rash, ulcerations or signs of pruritus noted. MUSCULOSKELETAL EXAM: No significant joint swelling noted. Results Laboratory Results: 01/16/17 05:04 01/16/17 05:04 01/14/17 08:39 NT-Pro-B Natriuret Pep 166 Impressions: Chest X-Ray 01/12/17 00:00 IMPRESSION: CARDIAC ENLARGEMENT. VASCULAR CONGESTION. Bilateral basilar opacities without improvement. Assessment & Plan - Diagnosis (1) Right heart failure Is this a current diagnosis for this admission?: Yes (2) Acute diastolic CHF (congestive heart failure) Is this a current diagnosis for this admission?: Yes (3) Acute respiratory failure with hypoxia and hypercapnia Is this a current diagnosis for this admission?: Yes (4) COPD exacerbation Is this a current diagnosis for this admission?: Yes (5) Hypertension Qualifiers: Hypertension type: essential hypertension Qualified Code(s): I10 - Essential (primary) hypertension Is this a current diagnosis for this admission?: Yes (6) Obesity hypoventilation syndrome Is this a current diagnosis for this admission?: Yes (7) Type 2 diabetes mellitus Qualifiers: Diabetes mellitus complication status: without complication 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 Patient does have evidence of heart failure based on elevated JVP, pedal edema and symptoms of dyspnea. This is predominantly right-sided. Patient being switched to p.o. Lasix at 40 mg daily. Patient will benefit from weight loss, salt and fluid restriction as well as maintenance of proper oxygenation and ventilation. Acute respiratory failure with hypoxemia and hypercapnia: Patient will benefit from noninvasive ventilation especially at night. Continue with oxygen supplementation during the day. Patient will benefit from a sleep study. COPD exacerbation: Continue with bronchodilator therapy. Hypertension: Currently reasonably well controlled. Blood pressure goal should be 135/85 or less. Obesity hypoventilation syndrome: Patient will benefit from aggressive weight loss. Diabetes type 2: Recommend good control but avoid any hyper or hypoglycemia. Morbid obesity: Patient will benefit from aggressive weight loss. Sleep apnea syndrome: There is high likelihood that patient has this. Recommend outpatient evaluation and management. - Time Time with patient: 15-25 minutes - CODE STATUS was discussed, patient remains full code. Surrogate decision-maker unchanged. Multiple medical problems were addressed. More than 50% of the time spent coordinating care, discussing management plans with involved caregivers. Management plans discussed with involved personnels. Medical decision making was of moderate to high complexity , patient's has multiple comorbidities. Patient feels comfortable being discharged today. Will follow patient until discharged. Medications reviewed and adjusted accordingly: Yes
[2017-01-17] MEDS: ATORVASTATIN CALCIUM 10 MG TABLET PO SCH (23:09)
[2017-01-17] MEDS: INSULIN GLARGINE,HUM.REC.ANLOG 1,000 UNIT/10 ML UNIT SUBCUT SCH (23:09)
[2017-01-18] MEDS: IPRATROPIUM/ALBUTEROL 0.5-2.5 MG/3 ML AMPUL NEB SCH ×2 (01:52→08:30)
[2017-01-18] MEDS: NICOTINE 21 MG/24 HR PATCH.TD24 TD SCH (08:07)
[2017-01-18] MEDS: ASPIRIN 81 MG TABLET, ENT COATED PO SCH (08:08)
[2017-01-18] MEDS: CARVEDILOL 3.125 MG TABLET PO SCH (08:09)
[2017-01-18] MEDS: VENLAFAXINE HCL 75 MG TABLET PO SCH (08:09)
[2017-01-18] MEDS: CYANOCOBALAMIN (VITAMIN B-12) 1,000 MCG TABLET PO SCH (08:09)
[2017-01-18] MEDS: FAMOTIDINE 20 MG TABLET PO SCH (08:09)
[2017-01-18] MEDS: GUAIFENESIN 600 MG TABLET.SA PO SCH (08:10)
[2017-01-18] MEDS: LISINOPRIL 10 MG TABLET PO SCH (08:10)
[2017-01-18] MEDS: LEVOFLOXACIN 750 MG TABLET PO SCH (08:10)
[2017-01-18] MEDS: INSULIN LISPRO 100 UNIT/ML 3 ML VIAL SUBCUT SCH (08:13)
[2017-01-18] MEDS: FUROSEMIDE INJ/PF 40 MG/4 ML SDV IV SCH (08:14)
[2017-01-18] MEDS: ENOXAPARIN SODIUM INJ 40 MG/0.4 ML DISP.SYRIN SUBCUT SCH (08:14)
[2017-01-18] MEDS: BUDESONIDE NEB 0.5 MG/2 ML AMPUL NEB SCH (08:30)
--- NOTE | 2017-01-18 09:26 | PDOC PROGRESS REPORT ---
Subjective Progress Note for:: 01/18/17 Subjective:: The patient is a 51-year-old male who presented with acute and acute on chronic hypoxic and hypercarbic respiratory failure which is a combination of COPD with exacerbation, acute on chronic diastolic congestive heart failure with exacerbation, morbid obesity with hypoventilation and cor pulmonale. The patient was going to be discharged yesterday, however, we were unable to arrange oxygen until this morning. The patient told me that he had a good night. He slept well and has no specific complaints this morning. The patient corrected me this morning and told me that he does not have a CPAP or BiPAP machine at home. As in the discharge summary the patient is going to have a sleep study on January 22 per his primary care doctor. In the interim, he was told to sleep in an upright position in a recliner. The patient agrees and does have a recliner at home. Physical Exam Vital Signs: Temp Pulse Resp BP Pulse Ox 99.0 F 82 16 111/68 96 01/17/17 23:02 01/18/17 08:32 01/18/17 08:32 01/17/17 23:02 01/18/17 08:32 Intake & Output 01/17/17 01/18/17 01/19/17 06:59 06:59 06:59 Intake Total 2870 3019 Balance 2870 3019 Weight 173.5 kg 168.5 kg General appearance: PRESENT: no acute distress, cooperative Head exam: PRESENT: atraumatic Eye exam: PRESENT: EOMI Mouth exam: PRESENT: moist Teeth exam: PRESENT: poor dentation Respiratory exam: PRESENT: rhonchi - Lung exam is improved from yesterday. Patient has decreased wheezing and decreased rhonchi. GI/Abdominal exam: PRESENT: normal bowel sounds, soft Extremities exam: PRESENT: +2 edema Musculoskeletal exam: PRESENT: full ROM Neurological exam: PRESENT: alert Results Laboratory Results: 01/16/17 05:04 01/16/17 05:04 01/14/17 08:39 NT-Pro-B Natriuret Pep 166 Impressions: Chest X-Ray 01/12/17 00:00 IMPRESSION: CARDIAC ENLARGEMENT. VASCULAR CONGESTION. Bilateral basilar opacities without improvement. Assessment & Plan - Diagnosis (1) Acute diastolic CHF (congestive heart failure) Is this a current diagnosis for this admission?: Yes (2) Acute respiratory failure with hypoxia and hypercapnia Is this a current diagnosis for this admission?: Yes (3) COPD exacerbation Is this a current diagnosis for this admission?: Yes (4) Encounter for smoking cessation counseling Is this a current diagnosis for this admission?: Yes (5) Hypertension Qualifiers: Hypertension type: essential hypertension Qualified Code(s): I10 - Essential (primary) hypertension Is this a current diagnosis for this admission?: Yes (7) Morbid obesity Is this a current diagnosis for this admission?: Yes (8) Obesity hypoventilation syndrome Is this a current diagnosis for this admission?: Yes (9) Pneumonia Qualifiers: Pneumonia type: due to unspecified organism Laterality: right Lung location: lower lobe of lung Qualified Code(s): J18.1 - Lobar pneumonia, unspecified organism (10) Right heart failure Is this a current diagnosis for this admission?: Yes (11) Type 2 diabetes mellitus Qualifiers: Diabetes mellitus complication status: without complication 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 Apparently, the [facility] prescribes oxygen from [place]. The oxygen company is going to be present at the patient' s home at 830. The patient's will then bring the oxygen to the hospital. The patient will be instructed on how to use the equipment and discharged from the hospital once he has received his oxygen. He has a follow-up appointment with his primary care provider at the [facility] in [place] this week. He has a follow-up with cardiology in [place] at the [facility] on the seventh and he has a sleep study arranged for the sixth. The patient's discharge medications are as per the discharge summary yesterday. I have not made any additional changes today.
[2017-01-18 09:30] VITALS: BP 108/64
--- NOTE | 2017-01-18 09:30 | PDOC DISCHARGE SUMMARY ---
General - Admit/Disc Date/PCP Admission Date/Primary Care Provider: 01/10/17 15:11 Discharge Date: 01/18/17 - Discharge Diagnosis (1) Acute diastolic CHF (congestive heart failure) Is this a current diagnosis for this admission?: Yes (2) Acute respiratory failure with hypoxia and hypercapnia Is this a current diagnosis for this admission?: Yes (3) COPD exacerbation Is this a current diagnosis for this admission?: Yes (4) Encounter for smoking cessation counseling Is this a current diagnosis for this admission?: Yes (5) Hypertension Is this a current diagnosis for this admission?: Yes (7) Morbid obesity Is this a current diagnosis for this admission?: Yes (8) Obesity hypoventilation syndrome Is this a current diagnosis for this admission?: Yes (10) Right heart failure Is this a current diagnosis for this admission?: Yes (11) Type 2 diabetes mellitus Is this a current diagnosis for this admission?: Yes - Additional Information Resuscitation Status: Full Code Discharge Diet: Diabetic, Other (Comments) - 2 gram sodium limitation Discharge Activity: Activity As Tolerated Home Medications: Insulin Glargine,Hum.rec.anlog [Lantus] 80 units SUBCUT DAILY 01/10/17 Aspirin [Aspirin EC] 81 mg PO DAILY 01/11/17 Cyanocobalamin (Vitamin B-12) [Vitamin B-12 1000 mcg Tablet] 1,000 mcg PO DAILY 01/11/17 Erythromycin Base [E-Mycin 0.5% Oph Ointment 3.5 gm] 1 applic OU QID 01/11/17 Insulin Aspart [Novolog Flexpen] 36 unit SUBCUT QPM 01/11/17 Insulin Aspart [Novolog Flexpen] 46 unit SUBCUT NOON 01/11/17 Lisinopril 20 mg PO DAILY 01/11/17 Metformin HCl 1,500 mg PO DAILY 01/11/17 Pravastatin Sodium [Pravachol] 40 mg PO DAILY 01/11/17 Aspirin [Ecotrin 81 mg EC Tablet] 81 mg PO DAILY tabec 01/17/17 Budesonide [Pulmicort Neb 0.5 mg/2 ml Ampul] 0.5 mg NEB RTQ12 30 Days #60 ampul.neb 01/17/17 Carvedilol [Coreg 3.125 mg Tablet] 3.125 mg PO Q12 #60 tablet 01/17/17 Furosemide 40 mg PO DAILY 30 Days tablet 01/17/17 Ipratropium/Albuterol Sulfate [Duoneb 3 ml Ampul] 3 ml NEB RTQ6 30 Days vial.neb 01/17/17 Nicotine [Nicoderm 21 mg/24 Hr Transderm Patch] 1 each TD DAILY 7 Days patch.td24 01/17/17 Venlafaxine HCl [Effexor 75 mg Tablet] 37.5 mg PO DAILY tablet 01/17/17 History of Present Illness History of Present Illness: CRYSTAL BRADLEY is a 51 year old male who presented to the emergency department with progressive shortness of breath despite being recently placed on levaquin in the outpatient setting presumably for acute bronchitis. Hospital Course Hospital Course: The patient is a morbidly obese 51-year-old male with a past medical history significant for insulin requiring type 2 diabetes, COPD and ongoing tobacco abuse. He presented to the emergency room with increased shortness of breath. [facility] and [facility] started on breathing treatments and Levaquin. In spite of this the patient's breathing worsened and he presented to the emergency room for further evaluation and treatment. He was found to have acute hypoxic and hypercapnic respiratory failure with CO2 levels in the 70s and oxygen saturations in the low 80s. The patient was placed on BiPAP and referred for admission. Initial chest x-ray was concerning for an early pneumonia. He also was felt to be having a COPD exacerbation. The patient was admitted to the hospital. He was placed on IV Levaquin as well as aggressive breathing treatments. He has since been started on IV Solu-Medrol. He had a 2D echocardiogram performed which revealed evidence of diastolic dysfunction. The right ventricle was not well visualized but he did have mildly elevated right ventricular pressures concerning for mild pulmonary hypertension. Overall the patient has been weaned off of his BiPAP. He currently is being aggressively diuresed with IV Lasix and making good urine. Yesterday he was seen by Dr. Brink from the cardiology service. Dr. Brink feels as if most of his problems are due to right-sided heart failure. He recommended continuing diuresis. The patient's labs now show that he has a contraction alkalosis. Plus, his hemoglobin and hematocrit are increasing. Therefore, he is likely becoming dry. We have stepped back his dose of Lasix. This has been discussed with cardiology. The patient will not continue hydrochlorothiazide at discharge. The patient will be sent home on oxygen therapy as his room air oxygen saturation is 85%. His oxygen therapy will be at 2 L/min. Physical Exam Vital Signs: Temp Pulse Resp BP Pulse Ox 99.0 F 82 16 111/68 96 01/17/17 23:02 01/18/17 08:32 01/18/17 08:32 01/17/17 23:02 01/18/17 08:32 Intake & Output 01/17/17 01/18/17 01/19/17 06:59 06:59 06:59 Intake Total 2870 3019 Balance 2870 3019 Weight 173.5 kg 168.5 kg General appearance: PRESENT: no acute distress Head exam: PRESENT: atraumatic Eye exam: PRESENT: EOMI Mouth exam: PRESENT: moist Teeth exam: PRESENT: poor dentation Respiratory exam: PRESENT: rhonchi Cardiovascular exam: PRESENT: RRR GI/Abdominal exam: PRESENT: normal bowel sounds, soft Rectal exam: PRESENT: deferred Extremities exam: PRESENT: +2 edema Neurological exam: PRESENT: alert, awake Psychiatric exam: PRESENT: appropriate affect Results Laboratory Results: 01/16/17 05:04 01/16/17 05:04 01/14/17 08:39 NT-Pro-B Natriuret Pep 166 Impressions: Chest X-Ray 01/12/17 00:00 IMPRESSION: CARDIAC ENLARGEMENT. VASCULAR CONGESTION. Bilateral basilar opacities without improvement. Plan Discharge Plan: Please see original discharge summary dated 01/17/2017.
--- NOTE | 2017-01-18 12:01 | PDOC PROGRESS REPORT ---
Subjective Progress Note for:: 01/18/17 Subjective:: Patient seems to be doing better with gradual improvement. Pt is denying any chest arm or neck discomfort. Patient denying any PND, orthopnea. Patient denied any sustained palpitations, dizziness, syncope, near syncope. Patient denying any fever chills. Patient denying any other significant discomfort. Patient is maintaining sinus rhythm. Patient waiting for oxygen delivery and instruction in oxygen use prior to discharge. Review of systems: Rest review of systems negative. Medications: Medications have been reviewed. Physical Exam Vital Signs: Temp Pulse Resp BP Pulse Ox 98.7 F 82 16 111/68 96 01/18/17 09:24 01/18/17 09:24 01/18/17 09:24 01/18/17 09:24 01/18/17 09:24 Intake & Output 01/17/17 01/18/17 01/19/17 06:59 06:59 06:59 Intake Total 2870 3019 Balance 2870 3019 Weight 173.5 kg 168.5 kg Exam: GENERAL: well-nourished and in no acute distress. Alert and oriented x3 HEAD: Atraumatic, normocephalic. EYES: Pupils equal round and reactive to light, extraocular movements intact, sclera anicteric, conjunctiva are normal. ENT: TMs normal, nares patent, oropharynx clear without exudates. Moist mucous membranes. No oral ulcerations or bleeding gums noted NECK: supple without lymphadenopathy. Trachea is central. No cervical or axillary lymphadenopathy noted. Carotids are 2+, JVD WNL LUNGS: Respiration seems nonlabored, no significant accessory muscle action noted. Breath sounds clear to auscultation bilaterally and equal noted. No wheezes rales or rhonchi noted. No significant dullness noted on percussion. CHEST: Palpation of the chest wall shows no significant chest wall tenderness. No other significant abnormalities noted. HEART: [place] PUMPER HEAD, No PSH, 1/6 [place] aortic area, 1/6 huber systolic murmur mitral area, no rubs, no gallops. ABDOMEN: Soft, no significant tenderness appreciated, normoactive bowel sounds. No guarding, no rebound. No rigidity noted . No masses appreciated. EXTREMITIES: Pedal pulses are 1-2+, no calf tenderness noted. No clubbing or cyanosis.t 1+ pedal edema noted NEUROLOGICAL: Focused neurological exam showed no significant neurologic deficit. Normal speech, no focal weakness appreciated. PSYCH: Normal mood, normal affect. Judgment and insight within normal limits. SKIN: No significant ecchymosis, rash, ulcerations or signs of pruritus noted. Very mild erythematous rash noted both feet MUSCULOSKELETAL EXAM: No significant joint swelling noted. Results Laboratory Results: 01/16/17 05:04 01/16/17 05:04 01/14/17 08:39 NT-Pro-B Natriuret Pep 166 Impressions: Chest X-Ray 01/12/17 00:00 IMPRESSION: CARDIAC ENLARGEMENT. VASCULAR CONGESTION. Bilateral basilar opacities without improvement. Assessment & Plan - Diagnosis (1) Right heart failure Is this a current diagnosis for this admission?: Yes (2) Acute diastolic CHF (congestive heart failure) Is this a current diagnosis for this admission?: Yes (3) Acute respiratory failure with hypoxia and hypercapnia Is this a current diagnosis for this admission?: Yes (4) COPD exacerbation Is this a current diagnosis for this admission?: Yes (5) Hypertension Qualifiers: Hypertension type: essential hypertension Qualified Code(s): I10 - Essential (primary) hypertension Is this a current diagnosis for this admission?: Yes (6) Obesity hypoventilation syndrome Is this a current diagnosis for this admission?: Yes (7) Type 2 diabetes mellitus Qualifiers: Diabetes mellitus complication status: without complication Diabetes mellitus senior living insulin use: with senior living use Qualified Code(s): E11.9 - Type 2 diabetes mellitus without complications; Z79.4 - residential (current) use of insulin Is this a current diagnosis for this admission?: Yes (8) Morbid obesity Is this a current diagnosis for this admission?: Yes (9) Sleep apnea syndrome Qualifiers: Sleep apnea type: unspecified type Qualified Code(s): G47.30 - Sleep apnea , unspecified Is this a current diagnosis for this admission?: Yes - Notes Notes: Diastolic and right-sided heart failure: 2D echo shows normal LVEF. Patient does have evidence of heart failure based on elevated JVP, pedal edema and symptoms of dyspnea. This is predominantly right-sided. Continue p.o. Lasix at 40 mg daily. Patient will benefit from weight loss, salt and fluid restriction as well as maintenance of proper oxygenation and ventilation. Acute respiratory failure with hypoxemia and hypercapnia: Patient will benefit from noninvasive ventilation especially at night. Continue with oxygen supplementation during the day. Patient will benefit from a sleep study. It seems patient has a BiPAP device at home. Patient waiting for oxygen delivery at home. COPD exacerbation: Continue with bronchodilator therapy. Currently with stable breathing. Hypertension: Currently reasonably well controlled. Blood pressure goal should be 135/85 or less. Obesity hypoventilation syndrome: Patient will benefit from aggressive weight loss. Diabetes type 2: Recommend good control but avoid any hyper or hypoglycemia. Morbid obesity: Patient will benefit from aggressive weight loss. Sleep apnea syndrome: There is high likelihood that patient has this. Recommend outpatient evaluation and management. Patient seems to have an appointment for such a study at [facility].. - Time Time with patient: 15-25 minutes - CODE STATUS was discussed, patient remains full code. Surrogate decision-maker patient's . Multiple medical problems were addressed. More than 50% of the time spent coordinating care, discussing management plans with involved caregivers. Management plans discussed with involved personnels. Medical decision making was of moderate to high complexity , patient's has multiple comorbidities. Medications reviewed and adjusted accordingly: Yes
== END 2017-01-18 12:58 | disposition home or self-care (01) | DRG 189 ==
LOC: ER 13:22 → EH 15:11 → UNDOADMIN 15:13 → EH 15:13 → 3S 16:17
PROVIDERS: ADMIT Pediatrics; ATTEND Pediatrics
PROC: 5A09557 Assistance with Respiratory Ventilation, Greater than 96 Consecutive Hours, Continuous Positive Airway Pressure (ICD-10-PCS; principal; 2017-01-10)
DX: J96.02 Acute respiratory failure with hypercapnia (principal); I50.31 Acute diastolic (congestive) heart failure; J44.1 Chronic obstructive pulmonary disease with (acute) exacerbation; E66.2 Morbid (severe) obesity with alveolar hypoventilation; Z68.43 Body mass index [BMI] 50.0-59.9, adult; J96.01 Acute respiratory failure with hypoxia; I11.0 Hypertensive heart disease with heart failure; E11.9 Type 2 diabetes mellitus without complications; Z79.82 Long term (current) use of aspirin; Z79.899 Other long term (current) drug therapy; Z79.4 Long term (current) use of insulin; F17.210 Nicotine dependence, cigarettes, uncomplicated
CPT/HCPCS: 36415; 36600; 71010; 71020; 80048; 80053; 82550; 82553; 82803; 82962; 83605; 83735; 83880; 84484; 85025; 87040; 87070; 87205; 93005; 93010; 93306; 93970; 94640; 94660; 96374; 99291; 99406; J1650; J1815; J1940; J1956; J2920; J2930; J3490; J7030; J7620; J7626

== ENCOUNTER 2018-06-26 06:08 | Emergency (ER) | payer OTHER, MEDICAID ==
[2018-06-26] MEDS ORDERED: LIDOCAINE 1% INJ-PF (10 MG/ML) 30 ML SDV INJ ONE (08:05)
[2018-06-26] MEDS ORDERED: CEPHALEXIN 500 MG CAPSULE PO ONE (08:14)
[2018-06-26] MEDS ORDERED: SULFAMETHOXAZOLE/TRIMETHOPRIM 800-160 MG TABLET PO ONE (08:14)
--- NOTE | 2018-06-26 11:05 | ER Document Report ---
HPI - HPI Patient complains to provider of: Abscess Time Seen by Provider: 06/26/18 07:51 Pain Level: 5 Context: Patient is a 53-year-old male presents to the emergency department complaining of generalized erythema and swelling noted to his posterior right upper thigh. Patient states he noticed the swelling on Friday. States he gets "these a lot." Patient states typically these lesions come to ahead and he is able to pop them. States this 1 has grown in size but has not come to ahead so he has been unable to express any discharge. Patient is a diabetic but denies any history of MRSA infections, IV drug use in the past or present. Past medical history: Diabetes Medications: Metformin, Lantus, NovoLog Allergies: None - MUSCULOSKELETAL Musculoskeletal: REPORTS: Extremity pain - right thigh, posterior Past Medical History - General Information source: Patient - Social History Smoking Status: Current Every Day Smoker Chew tobacco use (# tins/day): No Frequency of alcohol use: None Drug Abuse: None Family History: None, Hypertension Patient has suicidal ideation: No Patient has homicidal ideation: No Pulmonary Medical History: Reports: Hx COPD, Hx Pneumonia Denies: Hx Asthma, Hx Bronchitis Endocrine Medical History: Reports: Hx Diabetes Mellitus Type 2 Renal/ Medical History: Denies: Hx Peritoneal Dialysis Past Surgical History: Reports: Hx Appendectomy - Immunizations Immunizations up to date: Yes Hx Diphtheria, Pertussis, Tetanus Vaccination: Yes Hx Pneumococcal Vaccination: 05/19/14 Vertical Provider Document - CONSTITUTIONAL Agree With Documented VS: Yes Notes: GENERAL: Obese alert, interacts well. No acute distress. HEAD: Normocephalic, atraumatic. EYES: Pupils equal, round, and reactive to light. Extraocular movements intact. ENT: Oral mucosa moist, tongue midline. NECK: Full range of motion. Supple. Trachea midline. LUNGS: Clear to auscultation bilaterally, no wheezes, rales, or rhonchi. No respiratory distress. HEART: Regular rate and rhythm. No murmur ABDOMEN: Soft, non-tender. Non-distended. Bowel sounds present in all 4 quadrants. EXTREMITIES: Moves all 4 extremities spontaneously. No edema, normal radial and dorsalis pedis pulses bilaterally. No cyanosis. BACK: no cervical, thoracic, lumbar midline tenderness. No saddle anesthesia, normal distal neurovascular exam. NEUROLOGICAL: Alert and oriented x3. Normal speech. cranial nerves II through XII grossly intact PSYCH: Normal affect, normal mood. SKIN: Warm, dry, normal turgor. 4 cm x 4 cm area of erythema and fluctuance noted to the right upper posterior thigh. Surrounding cellulitic tissue also noted measuring 6 cm x 6 cm. - INFECTION CONTROL TRAVEL OUTSIDE OF THE [place] IN LAST 30 DAYS: No Course - Re-evaluation Re-evalutation: 06/26/18 11:02 Area of induration was I&D patient tolerated procedure well, see procedure note. Due to surrounding erythema and what appears to be cellulitic tissue will treat with oral antibiotics. Close return precautions discussed with patient. Patient stable for discharge. - Vital Signs Vital signs: Temp Pulse Resp BP Pulse Ox 98.8 F 92 20 144/77 H 91 L 06/26/18 06:14 06/26/18 06:14 06/26/18 06:14 06/26/18 06:14 06/26/18 06:14 Procedures - Incision and Drainage Right thigh posterior Type: Simple Anesthetic type: 1% Lidocaine mL's of anesthetic: 5 Blade size: 11 I&D procedure: Betadine prep applied, Shurclens applied, Sterile dressing applied Incision Method: Incision made by scalpel Amount/type of drainage: Copious purulence mixed with blood Discharge - Discharge Clinical Impression: Abscess Cellulitis Qualifiers: Site of cellulitis: extremity Site of cellulitis of extremity: lower extremity Laterality: right Qualified Code(s): L03.115 - Cellulitis of right lower limb Condition: Stable Disposition: HOME, SELF-CARE Instructions: Abscess ([facility]), Cephalexin ([facility]), MRSA Cellulitis ([facility]), Trimethoprim-Sulfa ([facility]), Post Incision and Drainage Additional Instructions: As we discussed you have been seen and treated in the emergency department for an abscess and a skin infection. Please make sure you take antibiotics as prescribed. Please return to the emergency room for any other concerning sympt oms. Prescriptions: Cephalexin Monohydrate [Keflex 500 mg Capsule] 500 mg PO BID 7 Days #14 capsule Sulfamethoxazole/Trimethoprim [Bactrim Ds Tablet] 1 each PO BID 7 Days #14 tablet [facility]: [facility] [[facility] - Follow up as needed
[2018-06-26 11:55] VITALS: BP 151/90
== END 2018-06-26 11:54 | disposition home or self-care (01) ==
LOC: ER 06:08
DX: L02.91 Cutaneous abscess, unspecified (principal); L03.115 Cellulitis of right lower limb; E11.9 Type 2 diabetes mellitus without complications; Z79.4 Long term (current) use of insulin; Z79.84 Long term (current) use of oral hypoglycemic drugs; F17.200 Nicotine dependence, unspecified, uncomplicated; J44.9 Chronic obstructive pulmonary disease, unspecified
CPT/HCPCS: 99283; 10060; J3490

== ENCOUNTER 2018-09-25 10:43 | Emergency (ER) | payer OTHER, MEDICAID ==
--- NOTE | 2018-09-25 11:01 | ER Document Report ---
ED Medical Screen (RME) - General Chief Complaint: Suicidal Ideation Stated Complaint: PSYCH EVAL Time Seen by Provider: 09/25/18 10:56 Primary Care Provider: [facility] [Primary Care Provider] - Follow up as needed Mode of Arrival: Ambulatory Information source: Patient Notes: Patient presents with suicidal ideation. Patient states he has been not taking his antidepressant medications for some time but recently restarted 3 days ago. states that patient has threatened to jump out of a moving vehicle and threatened to take all of his medications. states he is never threatened suicide in the past. does report increased stress involving an upcoming move as well as taking care of a disabled family member. I have greeted and performed a rapid initial assessment of this patient. A comprehensive ED assessment and evaluation of the patient, analysis of test results and completion of the medical decision making process will be conducted by additional ED providers. TRAVEL OUTSIDE OF THE [place] IN LAST 30 DAYS: No - Related Data Allergies/Adverse Reactions: No Known Allergies Allergy (Verified 09/25/18 10:46) Past Medical History Pulmonary Medical History: Reports: Hx COPD, Hx Pneumonia Denies: Hx Asthma, Hx Bronchitis Endocrine Medical History: Reports: Hx Diabetes Mellitus Type 2 Renal/ Medical History: Denies: Hx Peritoneal Dialysis Past Surgical History: Reports: Hx Appendectomy - Immunizations Immunizations up to date: Yes Hx Diphtheria, Pertussis, Tetanus Vaccination: Yes Physical Exam - Vital signs Vitals: Temp Pulse Resp BP Pulse Ox 97.9 F 73 16 168/86 H 95 09/25/18 10:54 09/25/18 10:54 09/25/18 10:54 09/25/18 10:54 09/25/18 10:54 - Psychological Associated symptoms: Flat affect Course - Vital Signs Vital signs: Temp Pulse Resp BP Pulse Ox 97.9 F 73 16 168/86 H 95 09/25/18 10:54 09/25/18 10:54 09/25/18 10:54 09/25/18 10:54 09/25/18 10:54 Doctor's Discharge - Discharge Referrals: [facility] [Primary Care Provider] - Follow up as needed
[2018-09-25 11:36] LABS: ABSOLUTE BASOPHILS # (AUTO) 0.1 10^3/uL (0.0-0.2); ABSOLUTE LYMPHOCYTES (AUTO) 2.2 10^3/uL (0.5-4.7); ABSOLUTE MONOCYTES (AUTO) 0.8 10^3/uL (0.1-1.4); ABSOLUTE NEUT (AUTO) 10.2 10^3/uL (1.7-8.2); BASOPHILS % (AUTO) 0.9 % (0-2); EOSINOPHILS % (AUTO) 0.3 % (0-6); HEMOGLOBIN 16.7 g/dL (13.5-17.0); LYMPHOCYTES % (AUTO) 16.5 % (13-45); MEAN CORPUSCULAR HEMOGLOBIN 28.9 pg (27.0-33.4); MEAN CORPUSCULAR VOLUME 85 fl (80-97); MONOCYTES % (AUTO) 6.1 % (3-13); PLATELET COUNT 282 10^3/uL (150-450); RED BLOOD COUNT 5.78 10^6/uL (4.35-5.55); RED CELL DISTRIBUTION WIDTH 14.6 % (11.5-14.0); SEGMENTED NEUTROPHILS % (AUTO) 76.2 % (42-78); TOTAL CELLS COUNTED % (AUTO) 100 %; WHITE BLOOD COUNT 13.4 10^3/uL (4.0-10.5)
--- NOTE | 2018-09-25 11:43 | ER Document Report ---
ED General - General Chief Complaint: Suicidal Ideation Stated Complaint: PSYCH EVAL Time Seen by Provider: 09/25/18 10:56 [facility]: [facility] [[facility]] - Follow up as needed Mode of Arrival: Ambulatory Notes: Patient is a 53-year-old male that presents to the emergency department for chief complaint of suicidal ideations and depression., He also complains of a " boil" on his left scrotum. Patient states that over the last 3 days he is been feeling more depressed, has had multiple thoughts about killing himself, he thought about jumping out of the car, and overdosing on his antidepressants. He was on venlafaxine, stopped taking them sometime ago, because he states he was "feeling good". He denies prior thoughts of this in the past he is felt depressed in the past and that is why he was on the medication. Denies any hallucinations, delusions, or paranoia. At this time he does deny having active thoughts of suicide, but has been having these thoughts recently. He is also complaining of drainage from a boil on his scrotum, which she has had for a few weeks now, he [facility]. He also has been having about 3 months of issues where he cannot retract his foreskin completely. He has been able to urinate. Past Medical History: Hypertension, diabetes mellitus, depression Past Surgical History: Appendectomy Social History: Admits to smoking, denies alcohol or illicit drug use. Family History: Reviewed and noncontributory for presenting illness Allergies: Reviewed, see documented allergy list. REVIEW OF SYSTEMS: Other than noted above, the 12 point review of systems was reviewed with the patient and were negative, all pertinent findings are included in the HPI. PHYSICAL EXAMINATION: Vital signs reviewed, nursing noted reviewed. GENERAL: Patient appears somewhat disheveled, poor hygiene. HEAD: Atraumatic, normocephalic. EYES: Eyes appear normal, extraocular movements intact, sclera anicteric, conjunctiva are normal. ENT: nares patent, oropharynx clear without exudates. Moist mucous membranes. NECK: Normal range of motion, supple without lymphadenopathy LUNGS: Breath sounds clear to auscultation bilaterally and equal. No wheezes rales or rhonchi. HEART: Regular rate and rhythm without murmurs ABDOMEN: Soft, nontender, normoactive bowel sounds. No rebound, guarding, or rigidity. No masses appreciated. Male genital exam: Patient noted to have active drainage, from what appears to be an abscess on the left superior aspect of the scrotum, there is no crepitus, tenderness, or erythema to the perineum. Testicles are normal vertical lie, with normal cremasteric reflex. The penis is uncircumcised, attempts to retract the foreskin completely, were unsuccessful, likely phimosis. EXTREMITIES: Nontender, good range of motion, no pitting or edema. NEUROLOGICAL: No focal neurological deficits. Moves all extremities spontaneously Motor and sensory grossly intact on exam. PSYCH: Mildly dysphoric mood, but answering questions appropriately, normal affect. SKIN: Warm, Dry, normal turgor, patient has multiple excoriations noted to his forearms, bilaterally, but no signs of acute infection in any of these. TRAVEL OUTSIDE OF THE [place] IN LAST 30 DAYS: No - Related Data Allergies/Adverse Reactions: No Known Allergies Allergy (Verified 09/25/18 10:46) Past Medical History - General Information source: Patient - Social History Smoking Status: Current Every Day Smoker Chew tobacco use (# tins/day): No Frequency of alcohol use: None Drug Abuse: None Family History: None, Hypertension Patient has suicidal ideation: Yes Patient has homicidal ideation: No Pulmonary Medical History: Reports: Hx COPD, Hx Pneumonia Denies: Hx Asthma, Hx Bronchitis Endocrine Medical History: Reports: Hx Diabetes Mellitus Type 2 Renal/ Medical History: Denies: Hx Peritoneal Dialysis Past Surgical History: Reports: Hx Appendectomy - Immunizations Immunizations up to date: Yes Hx Diphtheria, Pertussis, Tetanus Vaccination: Yes Hx Pneumococcal Vaccination: 05/19/14 Physical Exam - Vital signs Vitals: Temp Pulse Resp BP Pulse Ox 97.9 F 73 16 168/86 H 95 09/25/18 10:54 09/25/18 10:54 09/25/18 10:54 09/25/18 10:54 09/25/18 10:54 Course - Re-evaluation Re-evalutation: Patient seen and examined, vital signs reviewed. Medical screening testing was ordered including bloodwork, EKG, and toxicology. Results of testing were reviewed. Testing demonstrated mild leukocytosis, I suspect this is from the patient's scrotal abscess, which is actively draining at this time did not feel that it needed to be lanced further, patient was given a dose of Bactrim, and Keflex in the ED, patient will need to be continued on this, and will be ordered as a standing order while in the hospital, patient lisinopril being held while he is on the Bactrim, he will need to hold this during his course of antibiotics after discharge or disposition to inpatient psych depending on his complete evaluation, patient has been stable from a hemodynamic standpoint. At this point I feel that the patient is medically cleared and can be further evaluated from a psychiatric standpoint for final disposition from the emergency department. Patient updated on plan of care. Laboratory 09/25/18 09/25/18 09/25/18 10:50 10:50 11:13 WBC 13.4 H RBC 5.78 H Hgb 16.7 Hct 49.0 MCV 85 MCH 28.9 MCHC 34.0 RDW 14.6 H Plt Count 282 Seg Neutrophils % 76.2 Lymphocytes % 16.5 Monocytes % 6.1 Eosinophils % 0.3 Basophils % 0.9 Absolute Neutrophils 10.2 H Absolute Lymphocytes 2.2 Absolute Monocytes 0.8 Absolute Eosinophils 0.0 Absolute Basophils 0.1 Sodium Potassium Chloride Carbon Dioxide Anion Gap BUN Creatinine Est GFR ( Amer) Est GFR (Non-Af Amer) Glucose POC Glucose Calcium Total Bilirubin Direct Bilirubin Neonat Total Bilirubin Neonat Direct Bilirubin Neonat Indirect Bili AST ALT Alkaline Phosphatase Total Protein Albumin Urine Color YELLOW Urine Appearance CLEAR Urine pH 7.0 Ur Specific [place] 1.009 Urine Protein NEGATIVE Urine Glucose (UA) NEGATIVE Urine Ketones NEGATIVE Urine Blood NEGATIVE Urine Nitrite NEGATIVE Urine Bilirubin NEGATIVE Urine Urobilinogen NEGATIVE Ur Leukocyte Esterase NEGATIVE Urine WBC (Auto) 1 Urine RBC (Auto) 0 Squamous Epi Cells Auto 3 Urine Mucus (Auto) RARE Urine Ascorbic Acid NEGATIVE Salicylates Urine Opiates Screen NEGATIVE Urine Methadone Screen NEGATIVE Acetaminophen Ur Barbiturates Screen NEGATIVE Ur Phencyclidine Scrn NEGATIVE Ur Amphetamines Screen NEGATIVE U Benzodiazepines Scrn NEGATIVE Urine Cocaine Screen NEGATIVE U Marijuana (THC) Screen NEGATIVE Serum Alcohol 09/25/18 09/25/18 11:13 16:47 WBC RBC Hgb Hct MCV MCH MCHC RDW Plt Count Seg Neutrophils % Lymphocytes % Monocytes % Eosinophils % Basophils % Absolute Neutrophils Absolute Lymphocytes Absolute Monocytes Absolute Eosinophils Absolute Basophils Sodium 139.6 Potassium 4.5 Chloride 97 L Carbon Dioxide 31 H Anion Gap 12 BUN 13 Creatinine 0.86 Est GFR ( Amer) > 60 Est GFR (Non-Af Amer) > 60 Glucose 196 H POC Glucose 172 H Calcium 9.7 Total Bilirubin 0.6 Direct Bilirubin 0.3 Neonat Total Bilirubin Not Reportable Neonat Direct Bilirubin Not Reportable Neonat Indirect Bili Not Reportable AST 19 ALT 28 Alkaline Phosphatase 119 Total Protein 7.3 Albumin 4.2 Urine Color Urine Appearance Urine pH Ur Specific [place] Urine Protein Urine Glucose (UA) Urine Ketones Urine Blood Urine Nitrite Urine Bilirubin Urine Urobilinogen Ur Leukocyte Esterase Urine WBC (Auto) Urine RBC (Auto) Squamous Epi Cells Auto Urine Mucus (Auto) Urine Ascorbic Acid Salicylates < 1.0 L Urine Opiates Screen Urine Methadone Screen Acetaminophen < 10 L Ur Barbiturates Screen Ur Phencyclidine Scrn Ur Amphetamines Screen U Benzodiazepines Scrn Urine Cocaine Screen U Marijuana (THC) Screen Serum Alcohol < 10 - Vital Signs Vital signs: Temp Pulse Resp BP Pulse Ox 97.9 F 73 16 168/86 H 95 09/25/18 10:54 09/25/18 10:54 09/25/18 10:56 09/25/18 10:54 09/25/18 10:54 - Laboratory Result Diagrams: 09/25/18 11:13 09/25/18 11:13 Laboratory results interpreted by me: 09/25/18 09/25/18 09/25/18 11:13 11:13 16:47 WBC 13.4 H RBC 5.78 H RDW 14.6 H Absolute Neutrophils 10.2 H Chloride 97 L Carbon Dioxide 31 H Glucose 196 H POC Glucose 172 H Salicylates < 1.0 L Acetaminophen < 10 L - EKG Interpretation by Me Additional EKG results interpreted by me: EKG demonstrates sinus rhythm with a ventricular rate of 76 bpm, normal axis, normal intervals, no evidence of acute ischemia. This is compared with a prior EKG from 01/10/2017, without significant change. Discharge - Discharge Clinical Impression: Scrotal abscess, Suicidal ideation Condition: Stable Disposition: PSYCH HOSP/UNIT [facility]errals: [facility] [[facility]] - Follow up as needed
[2018-09-25 11:44] LABS: APPEARANCE,URINE CLEAR; BILIRUBIN,URINE NEGATIVE (NEGATIVE); COLOR,URINE YELLOW; GLUCOSE, URINE NEGATIVE (NEGATIVE); KETONES,URINE NEGATIVE (NEGATIVE); LEUKOCYTE ESTERASE,URINE NEGATIVE (NEGATIVE); NITRITE,URINE NEGATIVE (NEGATIVE); PROTEIN,URINE NEGATIVE (NEGATIVE); URINE SPECIFIC GRAVITY 1.009; UROBILINOGEN,URINE NEGATIVE mg/dL (<2.0)
[2018-09-25 11:59] LABS: ACETAMINOPHEN < 10 ug/mL (10-30); ALANINE AMINOTRANSFERASE 28 U/L (21-72); ALBUMIN 4.2 g/dL (3.5-5.0); ALCOHOL < 10 mg/dL (NONE DETECTED); ALKALINE PHOSPHATASE 119 U/L (38-126); ANION GAP 12 (5-19); ASPARTATE AMINO TRANSFERASE 19 U/L (17-59); BILIRUBIN,DIRECT 0.3 mg/dL (0.0-0.4); BILIRUBIN,TOTAL 0.6 mg/dL (0.2-1.3); BLOOD UREA NITROGEN 13 mg/dL (7-20); CALCIUM 9.7 mg/dL (8.4-10.2); CARBON DIOXIDE 31 mmol/L (22-30); CHLORIDE 97 mmol/L (98-107); GLUCOSE 196 mg/dL (75-110); POTASSIUM 4.5 mmol/L (3.6-5.0); SALICYLATE < 1.0 mg/dL (2.0-20.0); SODIUM 139.6 mmol/L (137-145); TOTAL PROTEIN 7.3 g/dL (6.3-8.2)
[2018-09-25 12:08] LABS: URINE AMPHETAMINES SCREEN NEGATIVE; URINE BARBITURATES SCREEN NEGATIVE; URINE BENZODIAZEPINES SCREEN NEGATIVE; URINE COCAINE SCREEN NEGATIVE; URINE MARIJUANA (THC) SCREEN NEGATIVE; URINE METHADONE SCREEN NEGATIVE; URINE PHENCYCLIDINE SCREEN NEGATIVE
[2018-09-25] MEDS ORDERED: CEPHALEXIN 500 MG CAPSULE PO ONE (12:24)
[2018-09-25] MEDS ORDERED: SULFAMETHOXAZOLE/TRIMETHOPRIM 800-160 MG TABLET PO ONE (12:24)
[2018-09-25] MEDS ORDERED: NICOTINE 21 MG/24 HR PATCH.TD24 TD ONE (16:50)
[2018-09-25] MEDS: INSULIN LISPRO 100 UNIT/ML 3 ML VIAL SUBCUT SCH (17:13)
[2018-09-25] MEDS: CARVEDILOL 3.125 MG TABLET PO SCH (17:14)
[2018-09-25] MEDS ORDERED: CARVEDILOL 3.125 MG TABLET PO SCH (18:00)
--- NOTE | 2018-09-25 18:37 | PSYCHOLOGICAL NOTE ---
Psych Note - Psych Note Date seen by psych provider: 09/25/18 Time seen by psych provider: 14:20 - 3420 Psych Note: Reason for consult; suicidal ideation Consent permissions: Patient's , Naun, Since at bedside per patient's request Patient reports that he is had thoughts of wanting to harm himself since Friday and states this is the first time it ever happened to him. He disclosed that all he seems to be able to do is sit at the kitchen table, smoke, and then go to bed. He identifies difficulty in sleeping and states that when he awakes to drive his [id number] to work at 2 AM it is the most difficult time of when he struggles with suicidal ideation. He disclosed that approximately 3 days ago (Friday) he started taking his old prescription of Effexor because of his thoughts. He also disclosed that he asked his to start helping him with his medications to reduce risk and access to things that could harm him. Today 1 became even more significant he asked to come to [facility] ED. 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 He confirms he goes to local [place] for his outpatient mental health provider and receives his prescriptions through [facility]. Patient then reports that approximately 1 year ago he was started on Zoloft however did not work so he was switched to Effexor. Patient denies a history of substance abuse, suicidal ideation, or engaging in self-harm activities. 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 She continued to report that the patient does get up frequently throughout the night because he takes his water pill before bed so has to use the restroom frequently. 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 She reports that the patient disclosed to her that he had stopped taking his antidepressants "a while ago" so she told him that he needed to start taking them again. She states that when he was on the medications "they worked very well" but he stopped because he thought he did not need them anymore. She confirms there are some additional stressors in the home as she and her sister are the main caregivers for their father and because the patient's health has been poor he feels like he is a burden to them. Patient is alert and orientated to person, place, time and circumstance. Mood is dysphoric with Blunted affect. Patient endorses passive suicidal ideation i.e. no plans means or intent. Delusions are absent behaviors congruent with an intact reality based presentation i.e. organized and linear thought process. Eye contact is well-maintained. Conversational speech is within normal rate, tone and prosody. Intellectual abilities appear to be low average range. Attention and concentration are currently good. Insight, judgment, impulse control are fair. [facility] the patient has diagnosis of both depression and anxiety. They deny the patient has any diagnosis of atrophy, TBI, or any other neurological concern. Patient was taking Effexor however this prescription was provided over a year ago. The patient has not been on medication since. No medication augmentations at this time 311 (F32.9) unspecified depressive disorder [facility] 300.00 (F41.9) unspecified anxiety disorder per [facility] Impression/Plan: patient is recommended for overnight mental health observation. Patient presents with passive suicidal ideation ie no plan, means or intent. Patient has mistreated strong insight and judgment in attempting to restart a medication, requesting his to control all medications in the home, and then coming to the emergency department when feeling his symptoms were too much to control on his own. Patient denies wanting to . There is concern that the patient attempted to self medicate with an old prescription of Effexor. Patient did not titrate the medication correctly and there is concern that the patient h as a high level of serotonin in his system. Patient will receive medication recommendations tomorrow after serotonin levels have decreased naturally. Patient be reevaluated. Dr. Palomo was consulted to care management of this patient; attending physicians in agreement with recommendations and disposition.
[2018-09-25] MEDS: CEPHALEXIN 500 MG CAPSULE PO SCH ×2 (18:46→22:13)
[2018-09-25] MEDS: SULFAMETHOXAZOLE/TRIMETHOPRIM 800-160 MG TABLET PO SCH (18:46)
[2018-09-25] MEDS ORDERED: FUROSEMIDE 40 MG TABLET PO SCH (22:00)
[2018-09-25] MEDS ORDERED: ATORVASTATIN CALCIUM 80 MG TABLET PO SCH (22:00)
[2018-09-25] MEDS ORDERED: METFORMIN HCL 500 MG TABLET PO SCH (22:00)
[2018-09-25] MEDS ORDERED: INSULIN GLARGINE,HUM.REC.ANLOG 1,000 UNIT/10 ML VIAL SUBCUT SCH (22:00)
--- NOTE | 2018-09-25 22:32 | EKG REPORT ---
SEVERITY:- NORMAL ECG - SINUS RHYTHM : Confirmed by: Rhea Bruce MD 25-Sep-2018 22:31:30
[2018-09-26] MEDS: CARVEDILOL 3.125 MG TABLET PO SCH (06:41)
[2018-09-26] MEDS: CEPHALEXIN 500 MG CAPSULE PO SCH ×2 (09:23→13:31)
[2018-09-26] MEDS: INSULIN LISPRO 100 UNIT/ML 3 ML VIAL SUBCUT SCH ×2 (09:23→11:49)
[2018-09-26] MEDS: SULFAMETHOXAZOLE/TRIMETHOPRIM 800-160 MG TABLET PO SCH (09:23)
--- NOTE | 2018-09-26 09:55 | ER Document Report ---
Doctor's Note Notes: 09/26/18 09:54 Patient seen and examined, vital signs reviewed, patient still feeling somewhat foggy headed this morning, and does not feel quite right according to the patient. But he denies having any suicidal or homicidal ideations this morning, and overall feels better. Denies any pain where he is having his scrotal abscess, and states that the drainage is gone down since starting on the antibiotics. At this point the patient can likely be discharged, with plan to resume antidepressants, will discuss with behavioral health team regarding timing, will further discussed with patient, if he is agreeable to plan of care, believe the patient can be safely discharged to home at this point. 09/26/18 12:40 Plan at this point will be to discharge the patient home on the antibiotics for his scrotal abscess, and to start him on BuSpar 5 mg twice daily, and have him follow-up at the [place] clinic.
[2018-09-26] MEDS ORDERED: ASPIRIN 81 MG TABLET, CHEWABLE PO SCH (10:00)
--- NOTE | 2018-09-26 11:40 | PSYCHOLOGICAL NOTE ---
Psych Note - Psych Note Date seen by psych provider: 09/26/18 Time seen by psych provider: 09:50 Psych Note: Reason for consult; suicidal ideation Consent permissions: Patient's , Naun, Since at bedside per patient's request Checking conducted with patient patient reports that he still feeling a little foggy with difficulties of having vertigo and "knocking" in his ear. Continues to disclose that he sometimes has been having difficulty with restless leg syndrome. Patient denies any thoughts of wanting to harm himself or others. Mood is euthymic with congruent affect as evidenced by smiling and engaging with clinician. Medication recommendations per [facility]'s contracted psychiatrist Dr. Malaika ABDULLAHI as follows BuSpar 5 mg twice daily 311 (F32.9) unspecified depressive disorder [facility] 300.00 (F41.9) unspecified anxiety disorder per [facility] Impression/Plan: patient is cleared from acute psychiatric services. Patient presented yesterday with increased suicidal ideation and attempted to restart an old medication. Unfortunately patient took the medication inappropriately i.e. to have a dose too quickly. Patient denies current thoughts of wanting to harm himself and presents with euthymic mood and congruent affect. Patient recommendations have been provided Dr. Palomo was consulted to care management of this patient; attending physicians in agreement with recommendations and disposition.
[2018-09-26 13:38] VITALS: BP 123/63
[2018-09-26] MEDS ORDERED: BUSPIRONE HCL 10 MG TABLET PO ONE (14:02)
[2018-09-26] MEDS ORDERED: LISINOPRIL 10 MG TABLET PO SCH (22:00)
== END 2018-09-26 14:24 | disposition home or self-care (01) ==
LOC: ER 10:43
DX: R45.851 Suicidal ideations (principal); N49.2 Inflammatory disorders of scrotum; E11.9 Type 2 diabetes mellitus without complications; F32.9 Major depressive disorder, single episode, unspecified; F41.9 Anxiety disorder, unspecified; J44.9 Chronic obstructive pulmonary disease, unspecified; I10 Essential (primary) hypertension; F17.210 Nicotine dependence, cigarettes, uncomplicated; F17.200 Nicotine dependence, unspecified, uncomplicated
CPT/HCPCS: 93005; 99285; 36415; 82962; 80307 ×4; 85025; 80053; 81001; 93010; J1815 ×3